=== PATIENT | male | born 1965 | race Caucasian/White ===

== ENCOUNTER 2017-01-21 05:52 | Day surgery (SDC) | payer OTHER ==
[2017-01-21] MEDS ORDERED: DIPRIVAN 200 MG/20 ML IV ONE (05:53)
[2017-01-21] MEDS ORDERED: Versed 2 MG/2 ML Injection IV ONE (05:53)
[2017-01-21] MEDS ORDERED: Lactated Ringers 1,000 ML IV SCH (06:30)
--- NOTE | 2017-01-21 08:58 | OP ---
SURGERY DATE/TIME: 01/21/2017 0714 PREOPERATIVE DIAGNOSIS: History of colon polyps. POSTOPERATIVE DIAGNOSIS: Large recurrent sigmoid colon polyp and a smaller distal sigmoid colon polyp. PROCEDURE: Colonoscopy. SURGEON: Jese Barahona M.D. ANESTHESIA: MAC by Yeison Gregg CRNA. ESTIMATED BLOOD LOSS: Minimal. SPECIMENS: There is a hot snare polypectomy of large sigmoid colon polyp and hot forceps polypectomy of smaller distal sigmoid colon polyp. HISTORY: Elias is a 51 year-old man who I initially performed colonoscopy on 01/14/2016. He had a colonoscopy and had a large pedunculated sigmoid colon polyp at 30 cm which was removed with a hot snare and was found to have a benign pedunculated tubular adenoma with no high grade dysplastic features present. He is here for follow up surveillance today. Risks, benefits and alternatives for colonoscopy were discussed and informed, written consent was obtained prior to the procedure. DESCRIPTION OF PROCEDURE: After informed written consent was obtained, the patient was taken to the endoscopy suite. He underwent monitored anesthesia and digital rectal exam showed normal sphincter tone and no internal lesions. The scope was inserted into the rectum and sequentially the entire colonic mucosa was traversed. The level of cecum was reached and verified with direct visualization of ileocecal valve. Large pedunculated sigmoid colon polyp was observed again presumably in the same location as last year. It was removed with a hot snare. The first attempt snare was used and removed majority of the lesion and it was retrieved and removed. Upon inspection there was still a fair amount of polyp present at the base so another snare pass was used to grasp the base with good hemostasis and removal of what appeared to be the entire lesion. Due to the recurrence the area was tattooed both proximally and distally with ink to be able to more easily identify the area on follow up that lesion appeared to be adequately removed and there was no bleeding from the site. Upon withdrawal a small sessile polyp was in the distal sigmoid colon and it was removed with hot forceps and sent for pathology in a separate container. No other lesions were encountered. Prior to withdrawal retroflexion was performed and was within normal limits. I discussed the findings with the patient's . He does have a follow up with Dr. Sandoval next week due to recurrent diverticulitis so I will forward all pathology results as I feel he will need general surgery follow up due to recurrence in a short period of time and large nature of the large recurrent polyp.
[2017-01-21 09:36] VITALS: O2SAT 98
[2017-01-21 09:38] VITALS: BP 126/75; PULSE 63
== END 2017-01-21 09:43 | disposition home or self-care (01) ==
LOC: SDC 05:52
PROVIDERS: ATTEND Family Medicine
PROC: 0DBN8ZX Excision of Sigmoid Colon, Via Natural or Artificial Opening Endoscopic, Diagnostic (ICD-10-PCS; principal; 2017-01-21)
PROC: 0DBN8ZX Excision of Sigmoid Colon, Via Natural or Artificial Opening Endoscopic, Diagnostic (ICD-10-PCS; 2017-01-21)
DX: K63.5 Polyp of colon (principal); Z86.010 Personal history of colon polyps
CPT/HCPCS: 00810; 88305; J2250; J2704

== ENCOUNTER 2017-01-21 22:07 | Emergency (ER) | payer OTHER ==
[2017-01-21 22:19] VITALS: BP 116/71; O2SAT 97
[2017-01-21] MEDS ORDERED: Phenergan 25 MG INJ IV ONE (22:27)
[2017-01-21] MEDS ORDERED: Hydromorphone 1 mg/ml Ampule IV ONE (22:27)
[2017-01-21] MEDS ORDERED: Sodium Chloride 0.9% 1000 ML 1,000 ML IV SCH (22:30)
[2017-01-21] MEDS ORDERED: Phenergan 25 MG INJ ONE (22:33)
[2017-01-21] MEDS ORDERED: Sodium Chloride 0.9% 1000 ML 1,000 ML ONE (22:34)
[2017-01-21] MEDS ORDERED: Hydromorphone 1 mg/ml Ampule ONE (22:34)
[2017-01-21] MEDS ORDERED: Zosyn 3.375GM/100 Ml D5W 3.375 GM/100 ML IVPB IV STA (22:48)
--- NOTE | 2017-01-21 22:48 | ERPHSYRPT ---
- History of Present Illness Time Seen by Provider: 01/21/17 22:20 Historian: patient Exam Limitations: no limitations Patient Subjective Stated Complaint: fever s/p colonscopy today and c/o congestion runny nose prior to procedure and intermittent left side abd pain Triage Nursing Assessment: intermittent abd pain to left side, no nausea or vomiting, states passing gas and feels some better, tmax 101 at home Physician History: YESTERDAY PT STARTED WITH SINUS DRAINAGE AND A HEADACHE. ABOUT 14.5 HOURS AGO PT HAD A COLONOSCOPY WHERE A LARGE POLYP WAS REMOVED. TONIGHT PT STARTED WITH FEVER UP TO 101.6 DEGREES, FEELING COLD AND DIAPHORESIS. PT DENIES VOMITING, CHEST PAIN, SHORTNESS OF AIR. Allergies/Adverse Reactions: No Known Drug Allergies Allergy (Verified 01/21/17 06:19) Hx Influenza Vaccination/Date Given: No Immunizations Up to Date: Yes - Review of Systems Constitutional: Fever, Other (FEELING COLD TONIGHT) Ears, Nose, & Throat: Sinus Drainage Abdominal/Gastrointestinal: Abdominal Pain Neurological: Headache All Other Systems: Reviewed and Negative - Past Medical History Pertinent Past Medical History: Yes Neurological History: No Pertinent History ENT History: No Pertinent History Cardiac History: No Pertinent History Respiratory History: No Pertinent History Endocrine Medical History: No Pertinent History Musculoskeletal History: No Pertinent History GI Medical History: Diverticulitis, Other History: No Pertinent History Psycho-Social History: No Pertinent History Male Reproductive Disorders: No Pertinent History Other Medical History: hx of diverticulosis, bloody stool have cleared up since antibiotics have cleared. - Past Surgical History Past Surgical History: Yes Neuro Surgical History: No Pertinent History Cardiac: No Pertinent History Respiratory: No Pertinent History Gastrointestinal: Appendectomy Genitourinary: No Pertinent History Musculoskeletal: No Pertinent History Male Surgical History: No Pertinent History Other Surgical History: teeth pulled, lipoma removed from R side - Social History Smoking Status: Current some day smoker Exposure to second hand smoke: No Drug Use: none - Nursing Vital Signs Nursing Vital Signs: Initial Vital Signs Temperature 98.6 F 01/21/17 22:14 Pulse Rate 86 01/21/17 22:14 Respiratory Rate 20 01/21/17 22:14 Blood Pressure 116/71 01/21/17 22:14 O2 Sat by Pulse Oximetry 97 01/21/17 22:14 Pain Scale Pain Intensity 7 - Physical Exam General Appearance: alert Eye Exam: PERRL/EOMI Ears, Nose, Throat Exam: moist mucous membranes, pharyngeal erythema (MINIMAL PHARYNGEAL ERYTHEMA WITHOUT EDEMA) Neck Exam: normal inspection Respiratory Exam: lungs clear Cardiovascular Exam: normal heart sounds Gastrointestinal/Abdomen Exam: soft, tenderness (MILD LLQ ABDOMINAL TENDERNESS) , other (B.S. MODERATELY HYPERACTIVE AND NORMOTONIC), No guarding Back Exam: normal range of motion Extremity Exam: normal inspection, No pedal edema Neurologic Exam: alert, cooperative Skin Exam: warm, dry SpO2 Interpretation: normal SpO2: 97 Oxygen Delivery: Room Air - Course Nursing assessment & vital signs reviewed: Yes Ordered Tests: Active Orders 24 hr Category Date Time Status Clean Catch Urine Specimen STAT Care 01/21/17 22:27 Active IV Insertion STAT Care 01/21/17 22:27 Active ABDOMEN AND PELVIS W/0 CONTRAS [CT] Stat Exams 01/21/17 22:28 Taken AMYLASE Stat Lab 01/21/17 23:02 Completed BLOOD CULTURE Stat Lab 01/21/17 23:23 Received CBC W DIFF Stat Lab 01/21/17 23:02 Completed CMP Stat Lab 01/21/17 23:02 Completed CULTURE, THROAT Stat Lab 01/21/17 23:23 Received CULTURE,URINE Stat Lab 01/22/17 00:16 Received Erythrocyte Sedimentation Rate Stat Lab 01/21/17 23:02 Completed LIPASE Stat Lab 01/21/17 23:02 Completed Lactic Acid Stat Lab 01/21/17 23:03 Completed MAG [MAGNESIUM] Stat Lab 01/21/17 23:23 Completed Edmonson Screen Stat Lab 01/21/17 23:02 Completed STREP SCREEN-BETA A Stat Lab 01/21/17 23:23 Completed UA W/ MICROSCOPIC Stat Lab 01/21/17 23:23 Completed Medication Summary Generic Name Dose Route Start Last Admin Trade Name Freq PRN Reason Stop Dose Admin Sodium Chloride 1,000 mls @ 200 mls/hr 01/21/17 22:30 01/21/17 22:39 Sodium Chloride 0.9% 1000 Ml IV 02/20/17 22:29 200 mls/hr .Q5H BJORN Administration Magnesium Sulfate/Dextrose 100 mls @ 200 mls/hr 01/21/17 23:58 01/22/17 00:05 Magnesium 1 Gm / 100 Ml D5w IV 01/22/17 00:27 200 mls/hr STAT ONE Administration Metronidazole 500 mg in 100 mls @ 200 mls/hr 01/22/17 00:18 Flagyl 500 Mg Ivpb IV 01/22/17 00:47 STAT STA Discontinued Medications Generic Name Dose Route Start Last Admin Trade Name Regan PRN Reason Stop Dose Admin Hydromorphone HCl 1 mg 01/21/17 22:27 01/21/17 22:39 Hydromorphone 1 Mg/Ml Ampule IV 01/21/17 22:28 1 mg STAT ONE Administration Hydromorphone HCl Confirm 01/21/17 22:34 Hydromorphone 1 Mg/Ml Ampule Administered 01/21/17 22:35 Dose 1 mg .ROUTE .STK-MED ONE Piperacillin Sod/Tazobactam Sod 3.375 gm in 100 mls @ 200 mls/hr 01/21/17 22: 48 01/21/17 23:12 Zosyn 3.375gm/100 Ml D5w IV 01/21/17 23:17 200 mls/hr STAT STA Administration Piperacillin Sod/Tazobactam Sod Confirm 01/21/17 22:59 Zosyn 3.375gm/100 Ml D5w Administered 01/21/17 23:00 Dose 3.375 gm in 100 mls @ ud IV .STK-MED ONE Magnesium Sulfate/Dextrose Confirm 01/22/17 00:02 Magnesium 1 Gm / 100 Ml D5w Administered 01/22/17 00:03 Dose 100 mls @ ud IV .STK-MED ONE Promethazine HCl 12.5 mg 01/21/17 22:27 01/21/17 22:38 Phenergan 25 Mg Inj IV 01/21/17 22:28 12.5 mg STAT ONE Administration Promethazine HCl Confirm 01/21/17 22:33 Phenergan 25 Mg Inj Administered 01/21/17 22:34 Dose 25 mg .ROUTE .STK-MED ONE Lab/Rad Data: Laboratory Result Diagrams 01/21/17 23:02 01/21/17 23:02 Laboratory Results 01/21/17 01/21/17 01/21/17 Range/Units 23:23 23:23 23:23 WBC (4.0-10.5) K/mm3 RBC (4.1-5.6) M/mm3 Hgb (12.5-18.0) gm/dl Hct (42-50) % MCV (78-100) fl MCH (26-32) pg MCHC (32-36) g/dl RDW (11.5-14.0) % Plt Count (150-450) K/mm3 MPV (6-9.5) fl Gran % (36.0-66.0) % Lymphocytes % (24.0-44.0) % Monocytes % (0.0-12.0) % Eosinophils % (0.00-5.0) % Basophils % (0.0-0.4) % Basophils # (0-0.4) ESR (0-15) mm/hr Sodium (136-145) mEq/L Potassium (3.5-5.1) mEq/L Chloride (98-107) mEq/L Carbon Dioxide (21-32) mEq/L Anion Gap (5-15) MEQ/L BUN (9-20) mg/dL Creatinine (0.55-1.30) mg/dl Estimated GFR ML/MIN Glucose (70-110) MG/DL Lactic Acid (0.4-2.0) Calcium (8.5-10.1) mg/dL Magnesium 1.7 L (1.8-2.4) mg/dL Total Bilirubin (0.2-1.0) mg/dL AST (15-37) U/L ALT (12-78) U/L Alkaline Phosphatase (46-116) U/L Serum Total Protein (6.4-8.2) gm/dL Albumin (3.4-5.0) g/dL Amylase (25-115) U/L Lipase (73-393) U/L Ur Collection Type VOID Urine Color YELLOW (YELLOW) Urine Appearance CLEAR (CLEAR) Urine pH 6.0 (5-6) Ur Specific Woodworth 1.015 (1.005-1.025) Urine Protein NEGATIVE (Negative) Urine Ketones SMALL (NEGATIVE) Urine Blood TRACE NON-HEM (0-5) Ender/ul Urine Nitrite NEGATIVE (NEGATIVE) Urine Bilirubin NEGATIVE (NEGATIVE) Urine Urobilinogen NORMAL (0-1) mg/dL Ur Leukocyte Esterase NEGATIVE (NEGATIVE) Urine Microscopic RBC 2-5 (0-2) /HPF Urine Microscopic WBC 2-5 (0-5) /HPF Ur Epithelial Cells FEW (FEW) /HPF Urine Bacteria FEW (NEGATIVE) /HPF Urine Mucus MANY (NEGATIVE) /HPF Urine Sperm PRESENT (NEGATIVE) /HPF Urine Culture Reflexed NO (NO) Urine Glucose NEGATIVE (NEGATIVE) mg/dL Monoscreen (Negative) Streptococcus Screen NEGATIVE (Negative) Specimen Received 01/21/17 2320 01/21/17 01/21/17 01/21/17 Range/Units 23:03 23:02 23:02 WBC (4.0-10.5) K/mm3 RBC (4.1-5.6) M/mm3 Hgb (12.5-18.0) gm/dl Hct (42-50) % MCV (78-100) fl MCH (26-32) pg MCHC (32-36) g/dl RDW (11.5-14.0) % Plt Count (150-450) K/mm3 MPV (6-9.5) fl Gran % (36.0-66.0) % Lymphocytes % (24.0-44.0) % Monocytes % (0.0-12.0) % Eosinophils % (0.00-5.0) % Basophils % (0.0-0.4) % Basophils # (0-0.4) ESR 6 (0-15) mm/hr Sodium (136-145) mEq/L Potassium (3.5-5.1) mEq/L Chloride (98-107) mEq/L Carbon Dioxide (21-32) mEq/L Anion Gap (5-15) MEQ/L BUN (9-20) mg/dL Creatinine (0.55-1.30) mg/dl Estimated GFR ML/MIN Glucose (70-110) MG/DL Lactic Acid 0.7 (0.4-2.0) Calcium (8.5-10.1) mg/dL Magnesium (1.8-2.4) mg/dL Total Bilirubin (0.2-1.0) mg/dL AST (15-37) U/L ALT (12-78) U/L Alkaline Phosphatase (46-116) U/L Serum Total Protein (6.4-8.2) gm/dL Albumin (3.4-5.0) g/dL Amylase (25-115) U/L Lipase (73-393) U/L Ur Collection Type Urine Color (YELLOW) Urine Appearance (CLEAR) Urine pH (5-6) Ur Specific Woodworth (1.005-1.025) Urine Protein (Negative) Urine Ketones (NEGATIVE) Urine Blood (0-5) Ender/ul Urine Nitrite (NEGATIVE) Urine Bilirubin (NEGATIVE) Urine Urobilinogen (0-1) mg/dL Ur Leukocyte Esterase (NEGATIVE) Urine Microscopic RBC (0-2) /HPF Urine Microscopic WBC (0-5) /HPF Ur Epithelial Cells (FEW) /HPF Urine Bacteria (NEGATIVE) /HPF Urine Mucus (NEGATIVE) /HPF Urine Sperm (NEGATIVE) /HPF Urine Culture Reflexed (NO) Urine Glucose (NEGATIVE) mg/dL Monoscreen NEGATIVE (Negative) Streptococcus Screen (Negative) Specimen Received 01/21/17 01/21/17 Range/Units 23:02 23:02 WBC 10.7 H (4.0-10.5) K/mm3 RBC 4.45 (4.1-5.6) M/mm3 Hgb 13.6 (12.5-18.0) gm/dl Hct 41.9 L (42-50) % MCV 94.2 (78-100) fl MCH 30.6 (26-32) pg MCHC 32.5 (32-36) g/dl RDW 12.4 (11.5-14.0) % Plt Count 258 (150-450) K/mm3 MPV 10.0 H (6-9.5) fl Gran % 82.0 H (36.0-66.0) % Lymphocytes % 7.5 L (24.0-44.0) % Monocytes % 9.7 (0.0-12.0) % Eosinophils % 0.5 (0.00-5.0) % Basophils % 0.3 (0.0-0.4) % Basophils # 0.03 (0-0.4) ESR (0-15) mm/hr Sodium 135 L (136-145) mEq/L Potassium 3.7 (3.5-5.1) mEq/L Chloride 100 (98-107) mEq/L Carbon Dioxide 24.7 (21-32) mEq/L Anion Gap 14.1 (5-15) MEQ/L BUN 7 L (9-20) mg/dL Creatinine 0.88 (0.55-1.30) mg/dl Estimated GFR > 60 ML/MIN Glucose 95 (70-110) MG/DL Lactic Acid (0.4-2.0) Calcium 9.3 (8.5-10.1) mg/dL Magnesium (1.8-2.4) mg/dL Total Bilirubin 0.50 (0.2-1.0) mg/dL AST 15 (15-37) U/L ALT 28 (12-78) U/L Alkaline Phosphatase 67 (46-116) U/L Serum Total Protein 6.8 (6.4-8.2) gm/dL Albumin 3.9 (3.4-5.0) g/dL Amylase 41 (25-115) U/L Lipase 86 (73-393) U/L Ur Collection Type Urine Color (YELLOW) Urine Appearance (CLEAR) Urine pH (5-6) Ur Specific Woodworth (1.005-1.025) Urine Protein (Negative) Urine Ketones (NEGATIVE) Urine Blood (0-5) Ender/ul Urine Nitrite (NEGATIVE) Urine Bilirubin (NEGATIVE) Urine Urobilinogen (0-1) mg/dL Ur Leukocyte Esterase (NEGATIVE) Urine Microscopic RBC (0-2) /HPF Urine Microscopic WBC (0-5) /HPF Ur Epithelial Cells (FEW) /HPF Urine Bacteria (NEGATIVE) /HPF Urine Mucus (NEGATIVE) /HPF Urine Sperm (NEGATIVE) /HPF Urine Culture Reflexed (NO) Urine Glucose (NEGATIVE) mg/dL Monoscreen (Negative) Streptococcus Screen (Negative) Specimen Received - Progress Discussed with : Jun (0012 - PT MAY GO HOME) - Departure Time of Disposition: 00:29 Departure Disposition: Home Clinical Impression: DIVERTICULITIS, ABDOMINAL PAIN Condition: Stable Critical Care Time: No Referrals: SHANTEL MCKINNEY MD [Primary Care Provider] - Instructions: Diverticulitis Additional Instructions: FOLLOW UP WITH PRIVATE DOCTOR TOMORROW. START CLEAR LIQUIDS TODAY. Prescriptions: Ciprofloxacin [Cipro 500 MG] 500 mg PO BID #20 tablet Metronidazole 500 mg [Flagyl 500 MG] 500 mg PO TID #30 tablet
[2017-01-21] MEDS ORDERED: Zosyn 3.375GM/100 Ml D5W 3.375 GM/100 ML IVPB IV ONE (22:59)
[2017-01-21 23:09] LABS: BASOPHIL % 0.3 % (0.0-0.4); Eosinophil % 0.5 % (0.00-5.0); Lymphocytes % 7.5 % (24.0-44.0); Mean Cell Volume 94.2 fl (78-100); Mean Corpuscular Hemoglobin 30.6 pg (26-32); Monocytes % 9.7 % (0.0-12.0); Platelet Count 258 K/mm3 (150-450); Red Blood Count 4.45 M/mm3 (4.1-5.6); Red Cell Distribution Width 12.4 % (11.5-14.0); White Blood Count 10.7 K/mm3 (4.0-10.5)
[2017-01-21 23:38] LABS: ALBUMIN 3.9 g/dL (3.4-5.0); ALKALINE PHOSPHATASE 67 U/L (46-116); ANION GAP 14.1 MEQ/L (5-15); BLOOD UREA NITROGEN 7 mg/dL (9-20); CHLORIDE 100 mEq/L (98-107); Carbon Dioxide 24.7 mEq/L (21-32); Glucose 95 MG/DL (70-110); LIPASE 86 U/L (73-393); Potassium 3.7 mEq/L (3.5-5.1); SGOT/AST 15 U/L (15-37); SGPT/ALT 28 U/L (12-78); SODIUM 135 mEq/L (136-145); Total Protein 6.8 gm/dL (6.4-8.2)
[2017-01-21] MEDS ORDERED: Magnesium 1 Gm / 100 Ml D5W*** 100 ML IV ONE (23:58)
[2017-01-22] MEDS ORDERED: Magnesium 1 Gm / 100 Ml D5W*** 100 ML IV ONE (00:02)
[2017-01-22 00:03] LABS: Bilirubin NEGATIVE (NEGATIVE); Blood TRACE NON-HEM Ery/ul (0-5); COMPLETE URINE MICROSCOPIC? YES; Collection Type VOID; Glucose NEGATIVE (NEGATIVE); Leukocyte Esterase NEGATIVE (NEGATIVE)
[2017-01-22 00:04] LABS: ADD URINE CULTURE? NO (NO); Bacteria FEW /HPF (NEGATIVE); Epithelial Cells FEW /HPF (FEW); Mucus MANY /HPF (NEGATIVE)
[2017-01-22] MEDS ORDERED: FLAGYL 500 MG IVPB 500 MG/100 ML BAG IV STA (00:18)
[2017-01-22] MEDS ORDERED: Cipro 500 MG ONE (00:22)
[2017-01-22] MEDS ORDERED: FLAGYL 500 MG IVPB 500 MG/100 ML BAG IV ONE (00:36)
[2017-01-22] MEDS ORDERED: TYLENOL 325 MG PO ONE (00:46)
[2017-01-22] MEDS ORDERED: TYLENOL 325 MG ONE (00:47)
[2017-01-22 01:57] VITALS: PULSE 76
--- NOTE | 2017-01-22 07:52 | XRAY ---
Indication: Left lower quadrant pain following colonoscopy. Multiple contiguous axial images obtained through the abdomen and pelvis without contrast as ordered. Comparison: August 24, 2015. Lung bases are clear. Heart is not enlarged. Noncontrasted stomach and bowel loops appear nonobstructed. Stable small fundal gastric diverticulum. Again scattered descending and sigmoid diverticulosis. At the junction of the descending and sigmoid colon, there is minimal pericolonic stranding favoring mild diverticulitis. No free fluid/air. Remaining liver, gallbladder, pancreas, spleen, adrenal glands, kidneys, ureters, and bladder appear unremarkable for noncontrast exam. There remains minimal aortoiliac calcifications without AAA. Osseous structures intact. Impression: 1. Again colonic diverticulosis with now mild diverticulitis at the junction of the descending and sigmoid colon. 2. Stable small gastric diverticulum. Comment: Preliminary interpretation was made by [facility]. No discrepancy. CTDI 12.13
== END 2017-01-22 02:09 | disposition home or self-care (01) ==
LOC: ED 22:07
DX: K57.92 Diverticulitis of intestine, part unspecified, without perforation or abscess without bleeding (principal); R10.9 Unspecified abdominal pain
CPT/HCPCS: 36000; 36415; 74176; 80053; 81000; 81002; 82150; 83605; 83690; 83735; 85025; 85652; 86308; 87040; 87070; 87086; 87430; 87631; 96360; 96365; 99285; J1170; J2543; J2550; J3475; A9270-GY

== ENCOUNTER 2017-02-12 06:50 | Inpatient (IN) | payer OTHER ==
--- NOTE | 2017-02-09 10:19 | HP ---
DATE OF SURGERY: 02/12/2017 ADMISSION DIAGNOSIS: Persistent diverticulitis and pain left lower quadrant. ANTICIPATED PROCEDURE: Partial left colectomy. HISTORY OF PRESENT ILLNESS: The patient has persistent diverticulitis. He had barium enema examination and this confirmed the area. He also had colonoscopic examination. The area is just unrelenting, persistent in nature left side. He did have large polyp removed which was satisfactory. Options were discussed with him and he wished to proceed with intervention. He presents for a partial left colectomy. PAST MEDICAL HISTORY: ALLERGIES: NONE. MEDICATIONS: Flagyl, Cipro. PAST SURGICAL HISTORY: Appendectomy. SOCIAL HISTORY: Negative. FAMILY HISTORY: Negative. REVIEW OF SYSTEMS: Negative. PHYSICAL EXAMINATION: VITAL SIGNS: Normal. CHEST: Clear. COR: Regular. IMPRESSION: Abdomen pain always down the left lower side. PLAN: Left partial colectomy.
[2017-02-12] MEDS ORDERED: ENTEREG 12 MG PO ONE (07:20)
[2017-02-12] MEDS ORDERED: Lactated Ringers 1,000 ML IV SCH (07:30)
[2017-02-12] MEDS ORDERED: MEFOXIN 2 GM PREMIX** 2 GM/50 ML ML IV SCH (08:00)
[2017-02-12] MEDS ORDERED: Lactated Ringers 1,000 ML IV ONE ×2 (08:39→11:25)
[2017-02-12] MEDS ORDERED: ENTEREG 12 MG PO SCH (10:00)
[2017-02-12] MEDS ORDERED: DILAUDID 2 MG INJECTION ONE (11:38)
[2017-02-12] MEDS ORDERED: SUBLIMAZE 100 MCG/2 ML ONE (11:48)
[2017-02-12] MEDS ORDERED: Zofran 4 MG/2 ML VIAL IV ONE ×2 (11:50→14:25)
[2017-02-12] MEDS ORDERED: FEVERALL 650 MG RC PRN (12:31)
[2017-02-12] MEDS ORDERED: Zofran 4 MG/2 ML VIAL IVIM PRN (12:32)
[2017-02-12] MEDS: Morphine PCA 1 MG/ML 30 ML IV PRN ×3 (13:08→23:45)
[2017-02-12] MEDS ORDERED: DIPRIVAN 200 MG/20 ML IV ONE (14:25)
[2017-02-12] MEDS ORDERED: DILAUDID 2 MG INJECTION IV ONE (14:25)
[2017-02-12] MEDS ORDERED: BRIDION 200MG/2ML IV ONE (14:25)
[2017-02-12] MEDS ORDERED: Decadron 4 MG INJ IV ONE (14:25)
[2017-02-12] MEDS ORDERED: SUBLIMAZE 100 MCG/2 ML IV ONE (14:25)
[2017-02-12] MEDS ORDERED: Zemuron 100 MG/10 ML IJ ONE (14:25)
[2017-02-12] MEDS ORDERED: Quelicin Fliptop 200 MG/10 ML IJ ONE (14:25)
[2017-02-12] MEDS ORDERED: TORAdol 30 mg Injection IJ ONE (14:25)
[2017-02-12] MEDS: D5W/0.45NS W/ 20mEq KCl 1000 ML 1,000 ML IV SCH (14:58)
[2017-02-12] MEDS ORDERED: TYLENOL 325 MG PO PRN (15:02)
[2017-02-12] MEDS: MEFOXIN 1 Gm/ D5W 50 Ml** 1 G/50 ML ML IV SCH ×2 (17:28→23:31)
[2017-02-12] MEDS: ENTEREG 12 MG PO SCH (22:04)
[2017-02-13] MEDS: D5W/0.45NS W/ 20mEq KCl 1000 ML 1,000 ML IV SCH ×3 (02:02→21:46)
[2017-02-13] MEDS: MEFOXIN 1 Gm/ D5W 50 Ml** 1 G/50 ML ML IV SCH (05:18)
[2017-02-13 05:36] LABS: Mean Corpuscular Hemoglobin 30.4 pg (26-32); Mean Platelet Volume 9.8 fl (6-9.5); Platelet Count 288 K/mm3 (150-450); Red Blood Count 4.01 M/mm3 (4.1-5.6); White Blood Count 14.1 K/mm3 (4.0-10.5)
[2017-02-13] MEDS: Morphine PCA 1 MG/ML 30 ML IV PRN ×5 (05:45→22:11)
[2017-02-13 05:53] LABS: BLOOD UREA NITROGEN 8 mg/dL (9-20); CHLORIDE 103 mEq/L (98-107); Carbon Dioxide 31.3 mEq/L (21-32); Glucose 139 MG/DL (70-110); Potassium 4.8 mEq/L (3.5-5.1); SODIUM 134 mEq/L (136-145)
[2017-02-13 07:08] LABS: Platelet Estimate NORMAL (NORMAL); Total Cells Counted 100
--- NOTE | 2017-02-13 07:43 | OP ---
SURGERY DATE/TIME: 02/12/2017 0956 PREOPERATIVE DIAGNOSIS: The patient had a large colon polyp. It had been marked with dye. He had persistent left lateral abdominal pain. He had diverticulitis recurrent. He had endoscopic examination and barium enema examination. His pain was persistent. He elected to have this out. It was clearly down the left side a little higher than lower. It was discussed with him preoperatively. It was discussed with him today in the holding area. POSTOPERATIVE DIAGNOSIS: PROCEDURE: Open laparotomy with left partial colectomy with reanastomosis, modification splenic flexure, umbilical hernia. SURGEON: Jono Sandoval M.D. ANESTHESIA: General. COMPLICATIONS: None. CONDITION: Stable. DESCRIPTION OF PROCEDURE: Taken to surgery. General anesthetic. Routine prep and drape. There was an umbilical incision which was taken out. The colon pathology was right at the junction of the descending and sigmoid. It was necessary to mobilize the splenic flexure. The splenic flexure was mobilized, this allowed to take most of the descending colon and most of the sigmoid. Preparation for end-to-side anastomosis in upper splenic flexure, descending colon side to the distal sigmoid posterior layer #3-0 PDS was placed and secured. Anterior layer was placed and secured. Anastomosis set about a little over 1 cm from the stapled off SIDDHARTHA edge. As noted it was end-to-side with the upper end and the lower side. Mesenteric defect approximated with 3-0 PDS. The field was irrigated. Lap sponge, sponge and needle counts were correct. Anterior abdominal wall closed with looped 0 PDS including the umbilical hernia. Subcutaneous tissues irrigated. Skin closed with jasvir. Sterile dressing applied. The patient tolerated the procedure satisfactorily.
[2017-02-13] MEDS: ENOXAPARIN SODIUM SQ SCH (08:50)
[2017-02-13] MEDS: ENTEREG 12 MG PO SCH ×2 (08:53→21:51)
[2017-02-13] MEDS: PROTONIX 40 MG IV IV SCH (22:01)
[2017-02-14] MEDS: Morphine PCA 1 MG/ML 30 ML IV PRN ×2 (04:18→13:39)
[2017-02-14] MEDS: ENOXAPARIN SODIUM SQ SCH (09:44)
[2017-02-14] MEDS: D5W/0.45NS W/ 20mEq KCl 1000 ML 1,000 ML IV SCH ×2 (09:44→16:45)
[2017-02-14] MEDS: ENTEREG 12 MG PO SCH ×2 (09:44→21:24)
--- NOTE | 2017-02-14 10:42 | PCM.NOTE ---
Date and Time: 02/14/17 1042 Subjective Assessment: he is doing well has been ambulating pain controlled with medication. no hunger. no nausea. no flatulence or bm. Objective Exam General Appearance: no apparent distress, alert Neurologic Exam: alert, oriented x 3, cooperative, normal mood/affect, nml cerebellar function, sensation nml, No motor deficits Skin Exam: normal color, warm, dry Eye Exam: PERRL, EOMI, eyes nml inspection Ears, Nose, Throat Exam: normal ENT inspection, pharynx normal, moist mucous membranes Neck Exam: normal inspection, non-tender, supple, full range of motion Respiratory Exam: normal breath sounds, lungs clear, No respiratory distress Cardiovascular Exam: regular rate/rhythm, normal heart sounds Gastrointestinal/Abdomen Exam: soft, tenderness (mild incisions with clean dry dressings), No mass Extremity Exam: normal inspection, normal range of motion Back Exam: normal inspection, normal range of motion, No CVA tenderness, No vertebral tenderness Male Genitalia Exam: deferred Rectal Exam: deferred OBJECTIVE DATA Vital Signs: Vital Signs - 24 hr Temp Pulse Resp BP Pulse Ox 02/14/17 08:00 18 02/14/17 07:50 98 02/14/17 07:05 76 18 93 L 02/14/17 06:52 98.5 F 75 18 120/74 98 02/14/17 04:18 92 L 02/14/17 04:12 98.2 F 79 17 134/76 92 L 02/14/17 00:06 98.4 F 78 16 107/66 96 02/13/17 22:11 95 02/13/17 19:59 94 L 02/13/17 19:49 99.0 F 79 20 114/63 95 02/13/17 19:00 97 02/13/17 17:50 95 02/13/17 16:12 75 18 92 L 02/13/17 16:00 20 91 L 02/13/17 15:59 91 L 02/13/17 15:41 97.5 F 77 20 108/70 91 L 02/13/17 14:27 91 L 02/13/17 12:00 20 96 02/13/17 11:04 97.7 F 86 20 126/71 96 Oxygen-Last 24 hours O2 Percentage 2 Liters = 28% O2 Percentage 2 Liters = 28% Pain Assessment - Last Documented Pain Intensity [Upper] 1 Pain Intensity 5 Pain Scale Used 0-10 Pain Scale Intake and Output: Intake & Output 02/11/17 02/12/17 02/13/17 02/14/17 11:59 11:59 11:59 11:59 Intake Total 2338 2343 Output Total 1800 1400 Balance 538 943 Weight 70.76 kg 74.389 kg 74.389 kg Assessment/Plan (1) S/P partial colectomy Current Visit: Yes Status: Acute Assessment & Plan: post op day 2 doing well diet per surgery check am labs ambulate on lovenox for ppx Code(s): Z90.49 - ACQUIRED ABSENCE OF OTHER SPECIFIED PARTS OF DIGESTIVE TRACT (2) Postoperative anemia Current Visit: Yes Status: Acute Assessment & Plan: mild asymptomatic Code(s): D64.9 - ANEMIA, UNSPECIFIED
[2017-02-14] MEDS: PROTONIX 40 MG IV IV SCH (21:29)
[2017-02-15] MEDS: Morphine PCA 1 MG/ML 30 ML IV PRN (01:20)
[2017-02-15] MEDS: D5W/0.45NS W/ 20mEq KCl 1000 ML 1,000 ML IV SCH ×2 (01:48→11:03)
[2017-02-15 05:56] LABS: Mean Cell Volume 94.3 fl (78-100); Mean Corpuscular Hemoglobin 30.5 pg (26-32); Mean Platelet Volume 10.1 fl (6-9.5); Platelet Count 287 K/mm3 (150-450); Red Cell Distribution Width 11.8 % (11.5-14.0); White Blood Count 10.1 K/mm3 (4.0-10.5)
[2017-02-15 05:58] LABS: ALBUMIN 2.9 g/dL (3.4-5.0); ALKALINE PHOSPHATASE 62 U/L (46-116); ANION GAP 8.4 MEQ/L (5-15); BLOOD UREA NITROGEN 5 mg/dL (9-20); CHLORIDE 102 mEq/L (98-107); Carbon Dioxide 29.6 mEq/L (21-32); Glucose 119 MG/DL (70-110); Potassium 3.8 mEq/L (3.5-5.1); SGOT/AST 18 U/L (15-37); SGPT/ALT 17 U/L (12-78); SODIUM 136 mEq/L (136-145); Total Protein 6.5 gm/dL (6.4-8.2)
[2017-02-15] MEDS: ENTEREG 12 MG PO SCH ×2 (08:15→20:50)
[2017-02-15] MEDS: NORCO 5/325 MG PO PRN ×4 (08:15→20:48)
[2017-02-15] MEDS: ENOXAPARIN SODIUM SQ SCH (08:15)
[2017-02-15] MEDS ORDERED: BACIGUENT 30 GM ONE (08:20)
--- NOTE | 2017-02-15 09:51 | PCM.NOTE ---
Date and Time: 02/15/17943 Subjective Assessment: ambulating in the halls. no flatulance no bm no nausea some soreness on the nose with ulceration in the left nare at site of old ng that was pulled a few days ago. Objective Exam General Appearance: no apparent distress, alert Neurologic Exam: alert, oriented x 3, cooperative, normal mood/affect, nml cerebellar function, sensation nml, No motor deficits Skin Exam: normal color, warm, dry Eye Exam: PERRL, EOMI, eyes nml inspection Ears, Nose, Throat Exam: pharynx normal, moist mucous membranes, other (left nare with ulceration) Neck Exam: normal inspection, non-tender, supple, full range of motion Respiratory Exam: normal breath sounds, lungs clear, No respiratory distress Cardiovascular Exam: regular rate/rhythm, normal heart sounds Gastrointestinal/Abdomen Exam: soft, normal bowel sounds, tenderness, No mass Extremity Exam: normal inspection, normal range of motion Back Exam: normal inspection, normal range of motion, No CVA tenderness, No vertebral tenderness Male Genitalia Exam: deferred Rectal Exam: deferred OBJECTIVE DATA Vital Signs: Vital Signs - 24 hr Temp Pulse Resp BP Pulse Ox 02/15/17 05:20 95 02/15/17 03:46 99.5 F 74 20 139/91 95 02/15/17 01:20 95 02/14/17 23:45 98.5 F 81 18 136/94 95 02/14/17 20:00 98.9 F 80 18 127/82 94 L 02/14/17 19:43 96 02/14/17 19:42 96 02/14/17 18:20 93 L 02/14/17 17:39 93 L 02/14/17 16:00 98.5 F 87 20 138/66 93 L 02/14/17 14:15 80 18 95 02/14/17 13:39 95 02/14/17 12:00 18 02/14/17 11:29 98.3 F 78 18 142/82 95 Pain Assessment - Last Documented Pain Intensity [Upper] 1 Pain Intensity 3 Pain Scale Used 0-10 Pain Scale Intake and Output: Intake & Output 02/12/17 02/13/17 02/14/17 02/15/17 11:59 11:59 11:59 11:59 Intake Total 2338 2343 2701 Output Total 1800 1400 805 Balance 867 978 9994 Weight 70.76 kg 74.389 kg 74.389 kg Lab Results: Lab Results-Last 24 Hours 02/15/17 02/15/17 Range/Units 05:15 05:15 WBC 10.1 (4.0-10.5) K/mm3 RBC 4.00 L (4.1-5.6) M/mm3 Hgb 12.2 L (12.5-18.0) gm/dl Hct 37.7 L (42-50) % MCV 94.3 (78-100) fl MCH 30.5 (26-32) pg MCHC 32.4 (32-36) g/dl RDW 11.8 (11.5-14.0) % Plt Count 287 (150-450) K/mm3 MPV 10.1 H (6-9.5) fl Sodium 136 (136-145) mEq/L Potassium 3.8 (3.5-5.1) mEq/L Chloride 102 (98-107) mEq/L Carbon Dioxide 29.6 (21-32) mEq/L Anion Gap 8.4 (5-15) MEQ/L BUN 5 L (9-20) mg/dL Creatinine 0.67 (0.55-1.30) mg/dl Estimated GFR > 60 ML/MIN Glucose 119 H (70-110) MG/DL Calcium 8.7 (8.5-10.1) mg/dL Total Bilirubin 0.60 (0.2-1.0) mg/dL AST 18 (15-37) U/L ALT 17 (12-78) U/L Alkaline Phosphatase 62 (46-116) U/L Serum Total Protein 6.5 (6.4-8.2) gm/dL Albumin 2.9 L (3.4-5.0) g/dL Assessment/Plan (1) S/P partial colectomy Current Visit: Yes Status: Acute Assessment & Plan: post op day 3 continue diet per surgery continue ambulation and Lovenox for dvt ppx Code(s): Z90.49 - ACQUIRED ABSENCE OF OTHER SPECIFIED PARTS OF DIGESTIVE TRACT (2) Postoperative anemia Current Visit: Yes Status: Acute Code(s): D64.9 - ANEMIA, UNSPECIFIED
[2017-02-15] MEDS: BACIGUENT 30 GM TOP SCH ×2 (10:05→20:49)
[2017-02-15] MEDS: PROTONIX 40 MG IV IV SCH (21:05)
[2017-02-16] MEDS: NORCO 5/325 MG PO PRN ×6 (00:50→21:21)
[2017-02-16] MEDS: D5W/0.45NS W/ 20mEq KCl 1000 ML 1,000 ML IV SCH ×2 (01:36→12:35)
[2017-02-16] MEDS: Morphine PCA 1 MG/ML 30 ML IV PRN ×2 (03:53→22:25)
--- NOTE | 2017-02-16 08:30 | PCM.NOTE ---
Date and Time: 02/16/17826 Subjective Assessment: pt reports he passed flatus overnight and had a small bowel movement this morning. pain is controlled, he is ambulating. tolerated fluids yesterday with no nausea or vomiting. Objective Exam General Appearance: no apparent distress, alert Skin Exam: normal color, warm, dry Respiratory Exam: normal breath sounds, lungs clear, No respiratory distress Cardiovascular Exam: regular rate/rhythm, normal heart sounds Gastrointestinal/Abdomen Exam: soft, normal bowel sounds, other (dressing clean , dry and intact), No tenderness, No mass Extremity Exam: normal inspection, normal range of motion OBJECTIVE DATA Vital Signs: Vital Signs - 24 hr Temp Pulse Resp BP Pulse Ox 02/16/17 07:51 98.6 F 84 18 136/86 91 L 02/16/17 06:34 93 L 02/16/17 04:00 20 02/16/17 03:53 94 L 02/16/17 03:29 98.0 F 71 20 141/90 93 L 02/16/17 00:00 98.7 F 72 15 156/95 93 L 02/15/17 20:00 20 02/15/17 19:26 98.5 F 82 20 141/94 95 02/15/17 16:00 98.7 F 72 20 145/96 95 02/15/17 12:00 20 02/15/17 11:54 98.4 F 75 16 136/87 95 02/15/17 08:30 20 Pain Assessment - Last Documented Pain Intensity [Upper] 1 Pain Intensity 4 Pain Scale Used 0-10 Pain Scale Intake and Output: Intake & Output 02/13/17 02/14/17 02/15/17 02/16/17 11:59 11:59 11:59 11:59 Intake Total 2338 2343 2941 3073 Output Total 1800 1400 1005 1000 Balance 052 538 1273 2073 Weight 74.389 kg 74.389 kg Multi-Disciplinary Progress Notes: Multi-Disciplinary Progress Notes 02/15/17 15:33 Respiratory Note by Karlene Renteria PT DOING WELL WITH 9INCENTIVE. [id number] PER BREATH WILL CHANGE TO SDC Initialized on 02/15/17 15:33 - END OF NOTE 02/15/17 11:43 Pharmacy Note by Catracho Pichardo PATIENT MEDICATION TEACHING/COUNSELING PERFORMED ON THE FOLLOWING MEDICATIONS: MORPHINE MOBILE APPLICATION TESTER VS HYDROCODONE ... PT CURRENTLY DISCONNECTED FROM MOBILE APPLICATION TESTER. TOOK DOSE OF NORCO 5 EARLIER THIS AM. RATING PAIN AT A 4 A THIS TIME. ALSO DISCUSSED ENTEREG FOLLOWING BOWEL SURGERIES. AND THE USE OF LOVENOX TO PREVENT BLOOD CLOTS DISCUSSED USES AND SIDE EFFECTS OF EACH MEDICATION. Sarah PICHARDO Initialized on 02/15/17 11:43 - END OF NOTE Assessment/Plan (1) S/P partial colectomy Current Visit: Yes Status: Acute Assessment & Plan: doing well at this time, appears to have resolving post-operative ileus with flatus and bowel movement today. will advance diet per surgery, otherwise doing well. Code(s): Z90.49 - ACQUIRED ABSENCE OF OTHER SPECIFIED PARTS OF DIGESTIVE TRACT
[2017-02-16] MEDS: BACIGUENT 30 GM TOP SCH ×2 (09:31→21:21)
[2017-02-16] MEDS: ENTEREG 12 MG PO SCH ×2 (09:32→21:21)
[2017-02-16] MEDS: ENOXAPARIN SODIUM SQ SCH (09:33)
[2017-02-16] MEDS: PROTONIX 40 MG IV IV SCH (21:20)
[2017-02-16] MEDS ORDERED: MORPHINE SULFATE 2 MG INJ IV PRN (22:48)
[2017-02-17] MEDS: NORCO 5/325 MG PO PRN ×6 (00:04→20:30)
[2017-02-17] MEDS: ENOXAPARIN SODIUM SQ SCH (10:02)
[2017-02-17] MEDS: BACIGUENT 30 GM TOP SCH ×2 (10:03→21:07)
[2017-02-17] MEDS: ENTEREG 12 MG PO SCH ×2 (10:03→21:07)
[2017-02-17 11:35] VITALS: O2SAT 94
[2017-02-17] MEDS: Sodium Chloride 0.9% 10 ML FLUSH Syringe IV SCH ×2 (13:48→21:13)
[2017-02-17 16:29] VITALS: BP 145/71; PULSE 74
[2017-02-17] MEDS: PROTONIX 40 MG IV IV SCH (21:07)
--- NOTE | 2017-02-18 08:11 | DS ---
DISCHARGE DIAGNOSIS: THE PATIENT HAS PERSISTENT LEFT LOWER ABDOMINAL FLANK PAIN WITH KNOWN HISTORY OF DIVERTICULOSIS AND DIVERTICULITIS. HE ALSO HAD A LARGE POLYP RESECTED TWICE IN THIS AREA ENDOSCOPICALLY WHICH IS STAINED WITH METHYLENE BLUE. PROCEDURE: Left partial colon resection with reanastomosis by Dr. Jono Sandoval. HOSPITAL COURSE: The patient has two features. He has persistent pain and diverticulitis. He is desiring to have this situation improved. He also had a polyp in this general area removed endoscopically twice. He was taken to surgery. Under general anesthetic left partial colectomy was performed. It removed the segment of diverticulosis and it also removed the methylene blue at the previous polypectomy site. Primary anastomosis performed. Postoperatively he resumed p.o. intake, ambulation and bowel function. He was able to be discharged on his preadmission medications and [place] for pain. He was scheduled to return to the office in two weeks. Ernie were left in place. Incision was dry. Voiding was satisfactory. Bowel movements were satisfactory. Temperature satisfactory. Abdominal binder was then placed. He was given specific instructions on dietary and activity.
== END 2017-02-17 21:20 | disposition home or self-care (01) | DRG 331 ==
LOC: MED SURG 06:50 → EDSTATUS 16:26
PROVIDERS: ADMIT Surgery; ATTEND Surgery
PROC: 0DBE0ZZ Excision of Large Intestine, Open Approach (ICD-10-PCS; principal; 2017-02-12)
DX: K57.92 Diverticulitis of intestine, part unspecified, without perforation or abscess without bleeding (principal); K57.90 Diverticulosis of intestine, part unspecified, without perforation or abscess without bleeding; K63.5 Polyp of colon; R10.32 Left lower quadrant pain; K42.9 Umbilical hernia without obstruction or gangrene; D64.9 Anemia, unspecified; Z90.49 Acquired absence of other specified parts of digestive tract
CPT/HCPCS: 00790; 36415; 80048; 80053; 85025; 85027; 86850; 86900; 86901; 87086; 88307; 94762; J0330; J0694; J1100; J1170; J1650; J1885; J2270; J2405; J2704; J3010; L0625; A9270-GY

== ENCOUNTER 2018-12-09 05:48 | Day surgery (SDC) | payer OTHER ==
--- NOTE | 2018-12-07 15:38 | HP ---
DATE OF SURGERY: 12/09/2018 ANTICIPATED PROCEDURE: Screening colonoscopy. HISTORY OF PRESENT ILLNESS: A patient requiring colonoscopy and presents for such. PAST MEDICAL HISTORY: ALLERGIES: NONE. MEDICATIONS: Trazodone. PAST SURGICAL HISTORY: Colectomy. Shoulder surgery. Appendectomy. SOCIAL HISTORY: Negative. FAMILY HISTORY: Negative. REVIEW OF SYSTEMS: CVS: Negative. PULMONARY: Negative. PHYSICAL EXAMINATION: VITAL SIGNS: Normal. CHEST: Clear. COR: Regular. ABDOMEN: Satisfactory. IMPRESSION: Patient presents for screening colonoscopy.
[2018-12-09] MEDS ORDERED: Lactated Ringers 1,000 ML IV SCH (06:00)
[2018-12-09] MEDS ORDERED: DIPRIVAN 200 MG/20 ML IV ONE (07:36)
[2018-12-09 09:12] VITALS: O2SAT 100
--- NOTE | 2018-12-09 09:23 | OP ---
SURGERY DATE/TIME: 12/09/2018 0820 PREOPERATIVE DIAGNOSIS: Previous sigmoid resection with no recent colonoscopic examination. POSTOPERATIVE DIAGNOSIS: Previous sigmoid resection with no recent colonoscopic examination. PROCEDURE: Colonoscopy complete to cecum. SURGEON: Jono Sandoval M.D. ANESTHESIA: MAC. COMPLICATIONS: None. CONDITION: Stable. FINDINGS: Normal including a normal anastomosis. INDICATION: The patient had resection quite some while ago. He has not had colonoscopy. DESCRIPTION OF PROCEDURE: He was taken to endoscopy. MAC sedation was excellent. Anal digital examination satisfactory. Scope introduced. Anastomosis was normal. The blind end was minimal. The functional end was cannulated. This was cannulated up to the cecum. The cecum, base of the cecum, ileocecal valve and appendiceal orifice normal. Ascending, hepatic, transverse, splenic, descending was normal. Sigmoid surgically absent. Anastomosis normal. Rectum normal. IMPRESSION: Normal examination. PLAN: Follow up in ten years unless symptoms occur.
[2018-12-09 09:27] VITALS: BP 131/72; PULSE 67
== END 2018-12-09 09:33 | disposition home or self-care (01) ==
LOC: SDC 05:48
PROVIDERS: ATTEND Surgery
DX: Z12.11 Encounter for screening for malignant neoplasm of colon (principal); Z09 Encounter for follow-up examination after completed treatment for conditions other than malignant neoplasm
CPT/HCPCS: J2704

== ENCOUNTER 2018-12-22 07:27 | Emergency (ER) | payer OTHER ==
[2018-12-22] MEDS ORDERED: Zofran 4 MG/2 ML VIAL IV ONE ×2 (07:35→09:57)
[2018-12-22] MEDS ORDERED: Pepcid 20 MG VIAL IV ONE ×2 (07:35→07:47)
[2018-12-22] MEDS ORDERED: BENADRYL 50 MG/ML IV ONE (07:35)
[2018-12-22] MEDS ORDERED: Sodium Chloride 0.9% 1000 ML 1,000 ML IV STA (07:35)
[2018-12-22] MEDS ORDERED: Hydromorphone 1 mg/ml Ampule IV ONE (07:35)
[2018-12-22 07:46] LABS: BASOPHIL % 0.2 % (0.0-0.4); Basophil (Absolute #) 0.03 (0-0.4); Eosinophil % 0.2 % (0.00-5.0); Eosinophil (Absolute #) 0.03 (0-0.5); Hematocrit 47.5 % (42-50); Hemoglobin 16.4 gm/dl (12.5-18.0); Lymphocyte (Absolute #) 1.57 (1.0-4.6); Lymphocytes % 9.5 % (24.0-44.0); Mean Cell Volume 93.5 fl (78-100); Mean Corpuscular Hemoglobin 32.3 pg (26-32); Mean Corpuscular Hgb Concent. 34.5 g/dl (32-36); Monocyte (Absolute #) 0.75 (0.0-1.3); Monocytes % 4.5 % (0.0-12.0); Neutrophil % 85.6 % (36.0-66.0); Platelet Count 298 K/mm3 (150-450); Red Blood Count 5.08 M/mm3 (4.1-5.6); Red Cell Distribution Width 12.6 % (11.5-14.0); White Blood Count 16.6 K/mm3 (4.0-10.5)
[2018-12-22] MEDS ORDERED: Zofran 4 MG/2 ML VIAL ONE ×2 (07:47→09:57)
[2018-12-22] MEDS ORDERED: BENADRYL 50 MG/ML ONE (07:47)
[2018-12-22] MEDS ORDERED: Sodium Chloride 0.9% 1000 ML 1,000 ML ONE (07:48)
[2018-12-22] MEDS ORDERED: Hydromorphone 1 mg/ml Ampule ONE (07:48)
[2018-12-22 07:53] LABS: INR 1.03 (0.8-3.0); PROTIME 11.7 SECONDS (8.83-12.87)
[2018-12-22 07:57] LABS: ALBUMIN 4.6 g/dL (3.5-5.0); ALKALINE PHOSPHATASE 81 U/L (38-126); ANION GAP 18.2 MEQ/L (5-15); BLOOD UREA NITROGEN 14 mg/dL (9-20); CHLORIDE 102 mmol/L (98-107); Calcium 9.7 mg/dL (8.4-10.2); Carbon Dioxide 24 mmol/L (22-30); Creatinine 1 0.69 mg/dL (0.66-1.25); Glucose 105 mg/dL (74-106); LIPASE 46 U/L (23-300); Potassium 4.2 mmol/L (3.5-5.1); SGOT/AST 29 U/L (17-59); SGPT/ALT 22 U/L (0-50); SODIUM 140 mmol/L (137-145); Total Protein 7.7 g/dL (6.3-8.2)
--- NOTE | 2018-12-22 08:03 | ERPHSYRPT ---
- History of Present Illness Time Seen by Provider: 12/22/18 07:35 Historian: patient, family Exam Limitations: no limitations Patient Subjective Stated Complaint: pt states that he has been nausea since last , pt states that he had a gallbladder ultrasound yesterday, pt states that he is unable to keep anything down, pt states that his rt abdomen is sore 5/10 pain with flare ups of 10/10 pain, colonostopy on 12/17 Triage Nursing Assessment: pt ambulated into the er, pt is vomiting, vomit is bile in color with small rust color particals, pt has active bowel sounds in all quads, abdomen is soft to the touch, tenderness to the rt abdomen, pt is hypertensive, pt has low tempature, pt hypertensive Physician History: Patient has had right sided abdominal pain, more in the RUQ for the past 6 days with worsening pain and nausea and vomiting over the past three hours. He had an ultrasound on 12/21/2018 and had a colonoscopy on 12/09/2018. Timing/Duration: day(s) (), worse (3 hours ago) Activities at Onset: other (eating makes it worse) Quality: cramping, sharpness Abdominal Pain Onset Location: RUQ Pain Radiation: no radiation Severity of Pain-Max: severe Severity of Pain-Current: severe Modifying Factors: Worsens With: eating Associated Symptoms: nausea, vomiting, No back, No chest pain, No diaphoresis, No diarrhea, No fever/chills, No fatigue, No headache, No heartburn, No loss of appetite, No neck pain, No rash, No shortness of breath, No syncope, No testicular pain, No weakness Previous symptoms: same symptoms as today, recently seen, no recent treatment Allergies/Adverse Reactions: No Known Drug Allergies Allergy (Verified 12/22/18 07:47) Home Medications: Trazodone HCl [Desyrel] 100 mg PO DAILY 11/24/18 [History] Hx Tetanus, Diphtheria Vaccination/Date Given: Yes Hx Influenza Vaccination/Date Given: No Hx Pneumococcal Vaccination/Date Given: No - Review of Systems Constitutional: No Fever, No Chills, No Weight Loss Eyes: No Eye Pain, No Vision Changes Ears, Nose, & Throat: No Mouth Swelling, No Throat Swelling, No Painful Swallowing Respiratory: No Cough, No Dyspnea Cardiac: No Chest Pain, No Palpitations, No Syncope Abdominal/Gastrointestinal: Abdominal Pain, Nausea, Vomiting, No Diarrhea, No Hematemesis, No Hematochezia, No Melena Genitourinary Symptoms: No Dysuria, No Hematuria, No Flank Pain Musculoskeletal: No Back Pain, No Neck Pain Skin: No Pruritis, No Rash Neurological: No Focal Weakness, No Lethargy, No Parasthesia, No Speech Changes , No Tremors Psychological: No Anxiety Endocrine: No Polydipsia, No Excessive Sweating Hematologic/Lymphatic: No Easy Bleeding, No Easy Bruising All Other Systems: Reviewed and Negative - Past Medical History Pertinent Past Medical History: Yes Neurological History: No Pertinent History ENT History: No Pertinent History Cardiac History: No Pertinent History Respiratory History: No Pertinent History Endocrine Medical History: No Pertinent History Musculoskeletal History: Osteoarthritis GI Medical History: Diverticulitis, Polyps, Other History: No Pertinent History Psycho-Social History: No Pertinent History Male Reproductive Disorders: No Pertinent History Other Medical History: hx of diverticulosis, bloody stool have cleared up since antibiotics have cleared. - Past Surgical History Past Surgical History: Yes Neuro Surgical History: No Pertinent History Cardiac: No Pertinent History Respiratory: No Pertinent History Gastrointestinal: Appendectomy, Colon Resection Genitourinary: No Pertinent History Musculoskeletal: Other Male Surgical History: No Pertinent History Other Surgical History: teeth pulled, lipoma removed from R side, pins in left shouder, colon resection due to diverticuli 2016,hernia repair with mesh - Social History Smoking Status: Former smoker Exposure to second hand smoke: No Drug Use: none Patient Lives Alone: No - Nursing Vital Signs Nursing Vital Signs: Initial Vital Signs Temperature 97.4 F 12/22/18 07:33 Pulse Rate 50 L 12/22/18 07:33 Respiratory Rate 12 12/22/18 07:33 Blood Pressure 162/87 12/22/18 07:33 O2 Sat by Pulse Oximetry 100 12/22/18 07:33 Pain Scale Pain Intensity 2 - Physical Exam General Appearance: no apparent distress Eye Exam: PERRL/EOMI, eyes nml inspection, No scleral icterus Ears, Nose, Throat Exam: pharynx normal, moist mucous membranes Neck Exam: normal inspection, non-tender, supple, full range of motion, No meningismus Respiratory Exam: normal breath sounds, airway intact, No respiratory distress, No accessory muscle use, No crackles/rales, No rhonchi, No wheezing, No stridor Cardiovascular Exam: regular rate/rhythm, normal heart sounds, normal peripheral pulses, capillary refill <2 sec Gastrointestinal/Abdomen Exam: soft, normal bowel sounds, tenderness (RUQ), No distention, No mass, No guarding, No pulsatile mass, No hepatomegaly Back Exam: normal inspection, normal range of motion, No CVA tenderness, No vertebral tenderness, No rash Extremity Exam: normal inspection, normal range of motion, pelvis stable, No calf tenderness, No victor hugo's sign, No inflammation, No pedal edema, No swelling Neurologic Exam: alert, oriented x 3, cooperative, drop press hand II-XII nml as tested, normal mood/affect, sensation nml, No motor deficits Skin Exam: normal color, warm, dry, No rash, No jaundice, No cyanosis SpO2 Interpretation: normal SpO2: 100 O2 Delivery: Room Air - Course Nursing assessment & vital signs reviewed: Yes EKG Interpreted by Me: RATE (55), Sinus Dereck, NORMAL AXIS, NORMAL INTERVALS, NORMAL QRS, NORMAL ST-T, Other (no appreciable change in comparision to EKG from 02/06/2017) - CT Exams Abdomen/Pelvis CT Interpretation: Other (per radiologist interpretation: Lung bases demonstrate minimal atelectasis/scarring. No infiltrate or effusion. Heart is not enlarged.noncontrasted stomach and bowel it appear nonobstructed. Stable small fundal gastric diverticulum. Patient reports appendectomy. Stable descending and sigmoid diverticulosis. There has been interval proximal sigmoid resection with intact anastomosis. No free fluid/air. Remaining liver , gallbladder, pancreas, spleen, adrenal glands, kidneys, ureters, and bladder appear normal and CT appearance in attenuation. Stable minimal A. or iliac calcifications. No AAA or pathologic retroperitoneal lymphadenopathy. Osseous structures intact again with minimal degenerative changes. No ventral or inguinal hernias. Overall impression: Stable gastric diverticulum and colonic diverticulosis. Interval proximal sigmoid resection without complications. Remaining CT of the abdomen and pelvis with contrast exam is negative.) - Radiology Ultrasound Exam Gallbladder Ultrasound: Other (pper radiologist interpretation on 12/21/2018: tiny gallbladder polyps. No pericholecystic fluid, gallstones, or wall thickening. Pancreas was obscured due to bowel gas.) Ordered Tests: Active Orders 24 hr Category Date Time Status EKG-ER Only STAT Care 12/22/18 07:35 Active IV Insertion STAT Care 12/22/18 07:35 Active NPO (ED) STAT Care 12/22/18 07:35 Active ABDOMEN AND PELVIS W CONTRAST [CT] Stat Exams 12/22/18 07:57 Taken AMYLASE Stat Lab 12/22/18 08:20 Completed CBC W DIFF Stat Lab 12/22/18 07:43 Completed CMP Stat Lab 12/22/18 07:43 Completed LIPASE Stat Lab 12/22/18 07:43 Completed Lactic Acid Stat Lab 12/22/18 07:35 Completed PROTIME WITH INR Stat Lab 12/22/18 07:43 Completed TROPONIN Q3H Lab 12/22/18 07:43 Completed UA W/RFX UR CULTURE Stat Lab 12/22/18 10:04 Completed Medication Summary Discontinued Medications Generic Name Dose Route Start Last Admin Trade Name Freq PRN Reason Stop Dose Admin Diphenhydramine HCl 25 mg 12/22/18 07:35 12/22/18 07:51 Benadryl 50 Mg/Ml IV 12/22/18 07:36 25 mg STAT ONE Administration Diphenhydramine HCl Confirm 12/22/18 07:47 Benadryl 50 Mg/Ml Administered 12/22/18 07:48 Dose 50 mg .ROUTE .STK-MED ONE Famotidine 20 mg 12/22/18 07:35 12/22/18 07:50 Pepcid 20 Mg Vial IV 12/22/18 07:36 20 mg STAT ONE Administration Famotidine Confirm 12/22/18 07:47 Pepcid 20 Mg Vial Administered 12/22/18 07:48 Dose 20 mg IV .STK-MED ONE Hydromorphone HCl 1 mg 12/22/18 07:35 12/22/18 07:50 Hydromorphone 1 Mg/Ml Ampule IV 12/22/18 07:36 1 mg STAT ONE Administration Hydromorphone HCl Confirm 12/22/18 07:48 Hydromorphone 1 Mg/Ml Ampule Administered 12/22/18 07:49 Dose 1 mg .ROUTE .STK-MED ONE Sodium Chloride 1,000 mls @ 999 mls/hr 12/22/18 07:35 12/22/18 09:10 Sodium Chloride 0.9% 1000 Ml IV 12/22/18 08:35 Infused .Q1H1M STA Infusion Sodium Chloride Confirm 12/22/18 07:48 Sodium Chloride 0.9% 1000 Ml Administered 12/22/18 07:49 Dose 1,000 mls @ ud .ROUTE .STK-MED ONE Ondansetron HCl 4 mg 12/22/18 07:35 12/22/18 07:50 Zofran 4 Mg/2 Ml Vial IV 12/22/18 07:36 4 mg STAT ONE Administration Ondansetron HCl Confirm 12/22/18 07:47 Zofran 4 Mg/2 Ml Vial Administered 12/22/18 07:48 Dose 4 mg .ROUTE .STK-MED ONE Ondansetron HCl 4 mg 12/22/18 09:57 12/22/18 10:00 Zofran 4 Mg/2 Ml Vial IV 12/22/18 09:58 4 mg STAT ONE Administration Ondansetron HCl Confirm 12/22/18 09:57 Zofran 4 Mg/2 Ml Vial Administered 12/22/18 09:58 Dose 4 mg .ROUTE .STK-MED ONE Lab/Rad Data: Laboratory Result Diagrams 12/22/18 07:43 12/22/18 07:43 Laboratory Results 12/22/18 12/22/18 12/22/18 Range/Units 10:04 08:20 07:43 WBC (4.0-10.5) K/mm3 RBC (4.1-5.6) M/mm3 Hgb (12.5-18.0) gm/dl Hct (42-50) % MCV (78-100) fl MCH (26-32) pg MCHC (32-36) g/dl RDW (11.5-14.0) % Plt Count (150-450) K/mm3 MPV (6-9.5) fl Gran % (36.0-66.0) % Eos # (Auto) (0-0.5) Absolute Lymphs (auto) (1.0-4.6) Absolute Monos (auto) (0.0-1.3) Lymphocytes % (24.0-44.0) % Monocytes % (0.0-12.0) % Eosinophils % (0.00-5.0) % Basophils % (0.0-0.4) % Absolute Granulocytes (1.4-6.9) Basophils # (0-0.4) PT (8.83-12.87) SECONDS INR (0.8-3.0) Sodium (137-145) mmol/L Potassium (3.5-5.1) mmol/L Chloride (98-107) mmol/L Carbon Dioxide (22-30) mmol/L Anion Gap (5-15) MEQ/L BUN (9-20) mg/dL Creatinine (0.66-1.25) mg/dL Estimated GFR ML/MIN Glucose (74-106) mg/dL Lactic Acid (0.4-2.0) Calcium (8.4-10.2) mg/dL Total Bilirubin (0.2-1.3) mg/dL AST (17-59) U/L ALT (0-50) U/L Alkaline Phosphatase (38-126) U/L Troponin I < 0.012 (0.000-0.034) ng/mL Serum Total Protein (6.3-8.2) g/dL Albumin (3.5-5.0) g/dL Amylase 62 (30-110) U/L Lipase (23-300) U/L Urine Color YELLOW (YELLOW) Urine Appearance CLEAR (CLEAR) Urine pH 6.0 (5-6) Ur Specific [place] 1.020 (1.005-1.025) Urine Protein NEGATIVE (Negative) Urine Ketones MODERATE (NEGATIVE) Urine Blood NEGATIVE (0-5) Ender/ul Urine Nitrite NEGATIVE (NEGATIVE) Urine Bilirubin NEGATIVE (NEGATIVE) Urine Urobilinogen NEGATIVE (0-1) mg/dL Ur Leukocyte Esterase NEGATIVE (NEGATIVE) Urine WBC (Auto) NONE (0-5) /HPF Urine RBC (Auto) NONE (0-2) /HPF U Epithel Cells (Auto) NONE (FEW) /HPF Urine Bacteria (Auto) NONE (NEGATIVE) /HPF Urine Mucus (Auto) SLIGHT (NEGATIVE) /HPF Urine Culture Reflexed NO (NO) Urine Glucose NEGATIVE (NEGATIVE) mg/dL 12/22/18 12/22/18 12/22/18 Range/Units 07:43 07:43 07:43 WBC 16.6 H (4.0-10.5) K/mm3 RBC 5.08 (4.1-5.6) M/mm3 Hgb 16.4 (12.5-18.0) gm/dl Hct 47.5 (42-50) % MCV 93.5 (78-100) fl MCH 32.3 H (26-32) pg MCHC 34.5 (32-36) g/dl RDW 12.6 (11.5-14.0) % Plt Count 298 (150-450) K/mm3 MPV 10.0 H (6-9.5) fl Gran % 85.6 H (36.0-66.0) % Eos # (Auto) 0.03 (0-0.5) Absolute Lymphs (auto) 1.57 (1.0-4.6) Absolute Monos (auto) 0.75 (0.0-1.3) Lymphocytes % 9.5 L (24.0-44.0) % Monocytes % 4.5 (0.0-12.0) % Eosinophils % 0.2 (0.00-5.0) % Basophils % 0.2 (0.0-0.4) % Absolute Granulocytes 14.20 H (1.4-6.9) Basophils # 0.03 (0-0.4) PT 11.7 (8.83-12.87) SECONDS INR 1.03 (0.8-3.0) Sodium 140 (137-145) mmol/L Potassium 4.2 (3.5-5.1) mmol/L Chloride 102 (98-107) mmol/L Carbon Dioxide 24 (22-30) mmol/L Anion Gap 18.2 H (5-15) MEQ/L BUN 14 (9-20) mg/dL Creatinine 0.69 (0.66-1.25) mg/dL Estimated GFR > 60.0 ML/MIN Glucose 105 (74-106) mg/dL Lactic Acid (0.4-2.0) Calcium 9.7 (8.4-10.2) mg/dL Total Bilirubin 0.70 (0.2-1.3) mg/dL AST 29 (17-59) U/L ALT 22 (0-50) U/L Alkaline Phosphatase 81 (38-126) U/L Troponin I (0.000-0.034) ng/mL Serum Total Protein 7.7 (6.3-8.2) g/dL Albumin 4.6 (3.5-5.0) g/dL Amylase (30-110) U/L Lipase 46 (23-300) U/L Urine Color (YELLOW) Urine Appearance (CLEAR) Urine pH (5-6) Ur Specific [place] (1.005-1.025) Urine Protein (Negative) Urine Ketones (NEGATIVE) Urine Blood (0-5) Ender/ul Urine Nitrite (NEGATIVE) Urine Bilirubin (NEGATIVE) Urine Urobilinogen (0-1) mg/dL Ur Leukocyte Esterase (NEGATIVE) Urine WBC (Auto) (0-5) /HPF Urine RBC (Auto) (0-2) /HPF U Epithel Cells (Auto) (FEW) /HPF Urine Bacteria (Auto) (NEGATIVE) /HPF Urine Mucus (Auto) (NEGATIVE) /HPF Urine Culture Reflexed (NO) Urine Glucose (NEGATIVE) mg/dL 12/22/18 Range/Units 07:35 WBC (4.0-10.5) K/mm3 RBC (4.1-5.6) M/mm3 Hgb (12.5-18.0) gm/dl Hct (42-50) % MCV (78-100) fl MCH (26-32) pg MCHC (32-36) g/dl RDW (11.5-14.0) % Plt Count (150-450) K/mm3 MPV (6-9.5) fl Gran % (36.0-66.0) % Eos # (Auto) (0-0.5) Absolute Lymphs (auto) (1.0-4.6) Absolute Monos (auto) (0.0-1.3) Lymphocytes % (24.0-44.0) % Monocytes % (0.0-12.0) % Eosinophils % (0.00-5.0) % Basophils % (0.0-0.4) % Absolute Granulocytes (1.4-6.9) Basophils # (0-0.4) PT (8.83-12.87) SECONDS INR (0.8-3.0) Sodium (137-145) mmol/L Potassium (3.5-5.1) mmol/L Chloride (98-107) mmol/L Carbon Dioxide (22-30) mmol/L Anion Gap (5-15) MEQ/L BUN (9-20) mg/dL Creatinine (0.66-1.25) mg/dL Estimated GFR ML/MIN Glucose (74-106) mg/dL Lactic Acid 1.3 (0.4-2.0) Calcium (8.4-10.2) mg/dL Total Bilirubin (0.2-1.3) mg/dL AST (17-59) U/L ALT (0-50) U/L Alkaline Phosphatase (38-126) U/L Troponin I (0.000-0.034) ng/mL Serum Total Protein (6.3-8.2) g/dL Albumin (3.5-5.0) g/dL Amylase (30-110) U/L Lipase (23-300) U/L Urine Color (YELLOW) Urine Appearance (CLEAR) Urine pH (5-6) Ur Specific [place] (1.005-1.025) Urine Protein (Negative) Urine Ketones (NEGATIVE) Urine Blood (0-5) Ender/ul Urine Nitrite (NEGATIVE) Urine Bilirubin (NEGATIVE) Urine Urobilinogen (0-1) mg/dL Ur Leukocyte Esterase (NEGATIVE) Urine WBC (Auto) (0-5) /HPF Urine RBC (Auto) (0-2) /HPF U Epithel Cells (Auto) (FEW) /HPF Urine Bacteria (Auto) (NEGATIVE) /HPF Urine Mucus (Auto) (NEGATIVE) /HPF Urine Culture Reflexed (NO) Urine Glucose (NEGATIVE) mg/dL - Progress Progress: improved, re-examined Progress Note: 12/22/18 08:23 Reviewed colonoscopy report from 12/09/[address] Erma Sandoval MD, General Surgery, It was a negative colonoscopy for any abnormalities with normal anastomosis from the sigmoid colectomy he had performed in the past as the rest of the colon was present except for the removed sigmoid portion. 12/22/18 09:57 Pain has resolved. Abdomen is soft, non-distended, non-tender with no CVA tenderness bilaterally. Patient has some mild hiccups and nausea has returned. 12/22/18 10:37 Patient has no abdominal pain on repeat examination and nausea has resolved after IV medication. Discussed with .: Kimberly (@10:40, spoke with Dr Barahona, patient's physician and hospitalist about patient's presentation, lab results and imaging studies results, . We agreed patient does not require inpatient admission at this time and can be discharged home with follow-up in the next day) Counseled pt/family regarding: lab results, diagnosis, need for follow-up, rad results - Departure Departure Disposition: Home Clinical Impression: RUQ abdominal pain, Gastric diverticulum without complication, Diverticulosis of colon (without mention of hemorrhage), Gallbladder polyp, Elevated blood pressure reading without diagnosis of hypertension Nausea & vomiting Qualifiers: Vomiting type: unspecified Vomiting Intractability: non-intractable Qualified Code(s): R11.2 - Nausea with vomiting, unspecified Leukocytosis, unspecified Qualifiers: Leukocytosis type: unspecified Qualified Code(s): D72.829 - Elevated white blood cell count, unspecified Condition: Good Critical Care Time: No Referrals: SHANTEL BARAHONA MD [Primary Care Provider] - 12/23/18 ERMA SANDOVAL [ACTIVE STAFF] - 12/22/18 (call the office for an appointment) Instructions: Vomiting -- Adult, Acute Abdomen (Belly Pain), Adult (DC), Diverticulosis (DC), Gallstones (DC) Additional Instructions: Return immediately back to the emergency room any worsening pain, worsening vomiting, any fevers, any chest pain, any shortness of breath, or any other concerning signs or symptoms that were not present on today's emergency room visit for immediate evaluation in the emergency department. Your ultrasound showed gallbladder polyps and your CT scan of the abdomen and pelvis showed a gastric diverticulum and left-sided colonic diverticulosis. Followup with her general surgeon in the next 12-24 hours as well as followup with your primary care physician in the next 12-24 hours. Prescriptions: Ondansetron ODT 4 MG [Zofran Odt 4 mg] 4 mg PO Q8H PRN PRN #10 tab.rapdis PRN Reason: Nausea Etodolac 400 mg [Lodine 400 mg] 400 mg PO BID PRN PRN #20 tablet PRN Reason: Pain
[2018-12-22 10:05] VITALS: BP 159/87; PULSE 52
[2018-12-22 10:18] LABS: Appearance CLEAR (CLEAR); Bilirubin NEGATIVE (NEGATIVE); Blood NEGATIVE Ery/ul (0-5); Glucose NEGATIVE (NEGATIVE); Ketones MODERATE (NEGATIVE); Leukocyte Esterase NEGATIVE (NEGATIVE); Mucus SLIGHT /HPF (NEGATIVE); Nitrite NEGATIVE (NEGATIVE); Protein,Urine Dip NEGATIVE (Negative); Urobilinogen NEGATIVE mg/dL (0-1)
[2018-12-22 10:39] VITALS: O2SAT 100
--- NOTE | 2018-12-22 12:15 | XRAY ---
Indication: Nausea and vomiting. Multiple contiguous axial images obtained through the abdomen and pelvis using 80 cc Isovue 370 contrast only. Comparison: January 21, 2017. Lung bases demonstrates minimal atelectasis/scarring. No infiltrate or effusion. Heart is not enlarged. Noncontrasted stomach and bowel loops appear nonobstructed. Stable small fundal gastric diverticulum. Patient reports appendectomy. Stable descending and sigmoid diverticulosis. There has been interval proximal sigmoid resection with intact anastomosis. No free fluid/air. Remaining liver, gallbladder, pancreas, spleen, adrenal glands, kidneys, ureters, and bladder appear normal in CT appearance and attenuation and. Stable minimal aortoiliac calcifications. No AAA or pathologic retroperitoneal lymphadenopathy. Osseous structures intact again with minimal degenerative changes. No ventral or inguinal hernias. Impression: 1. Stable gastric diverticulum and colonic diverticulosis. 2. Interval proximal sigmoid resection without complications. 3. Remaining CT abdomen/pelvis with contrast exam is negative. CT DI 15.02
== END 2018-12-22 11:03 | disposition home or self-care (01) ==
LOC: ED 07:27
DX: R10.11 Right upper quadrant pain (principal); K31.4 Gastric diverticulum; K57.90 Diverticulosis of intestine, part unspecified, without perforation or abscess without bleeding; K82.4 Cholesterolosis of gallbladder; E03.0 Congenital hypothyroidism with diffuse goiter; R11.2 Nausea with vomiting, unspecified; D72.829 Elevated white blood cell count, unspecified
CPT/HCPCS: 36415; 74177; 80053; 81001; 82150; 83605; 83690; 84484; 85025; 85610; 93005; 96360; 96374; 96375; 99284; J1170; J1200; J2405

== ENCOUNTER 2018-12-23 20:55 | Emergency (ER) | payer OTHER ==
[2018-12-23] MEDS ORDERED: Sodium Chloride 0.9% 1000 ML 1,000 ML IV STA (21:19)
[2018-12-23] MEDS ORDERED: TORAdol 30 mg Injection IV ONE (21:19)
[2018-12-23] MEDS ORDERED: SUBLIMAZE 100 MCG/2 ML IV ONE (21:19)
[2018-12-23] MEDS ORDERED: BENADRYL 50 MG/ML IV ONE (21:19)
[2018-12-23] MEDS ORDERED: Zofran 4 MG/2 ML VIAL IV ONE (21:19)
[2018-12-23] MEDS ORDERED: Pepcid 20 MG VIAL IV ONE ×2 (21:19→21:43)
[2018-12-23] MEDS ORDERED: Zofran 4 MG/2 ML VIAL ONE (21:42)
[2018-12-23] MEDS ORDERED: BENADRYL 50 MG/ML ONE (21:43)
[2018-12-23] MEDS ORDERED: SUBLIMAZE 100 MCG/2 ML ONE (21:43)
[2018-12-23] MEDS ORDERED: TORAdol 30 mg Injection ONE (21:43)
[2018-12-23 21:44] LABS: Absolute Neutrophil Ct (ANC) 15.35 (1.4-6.9); BASOPHIL % 0.2 % (0.0-0.4); Basophil (Absolute #) 0.04 (0-0.4); Eosinophil % 0.2 % (0.00-5.0); Eosinophil (Absolute #) 0.03 (0-0.5); Hematocrit 47.5 % (42-50); Hemoglobin 16.8 gm/dl (12.5-18.0); Lymphocyte (Absolute #) 1.78 (1.0-4.6); Lymphocytes % 9.7 % (24.0-44.0); Mean Cell Volume 90.8 fl (78-100); Mean Corpuscular Hemoglobin 32.1 pg (26-32); Mean Corpuscular Hgb Concent. 35.4 g/dl (32-36); Monocyte (Absolute #) 1.13 (0.0-1.3); Monocytes % 6.2 % (0.0-12.0); Neutrophil % 83.7 % (36.0-66.0); Platelet Count 325 K/mm3 (150-450); Red Blood Count 5.23 M/mm3 (4.1-5.6); Red Cell Distribution Width 12.2 % (11.5-14.0); White Blood Count 18.3 K/mm3 (4.0-10.5)
[2018-12-23] MEDS ORDERED: Sodium Chloride 0.9% 1000 ML 1,000 ML ONE (21:44)
--- NOTE | 2018-12-23 21:44 | ERPHSYRPT ---
- History of Present Illness Time Seen by Provider: 12/23/18 21:25 Historian: patient, family Exam Limitations: no limitations Patient Subjective Stated Complaint: Pt states, "I am miserable, I can't stand this, my abd hurts so bad and I can't quit vomiting". Triage Nursing Assessment: pt ambulated to rm 3, alert and oriented, at bedside. Pt c/o abd pain to rt side which radiates up under rt ribs. Pt vomiting at this time. Pt saw Dr. Mckinney today, got Rx, but started vomiting at 1730 and can't quit. Scheduled for hida scan for Thursday. Lungs clear, heart tones reg, abd soft with active bs x4 quad, tender on palpation. Physician History: Patient has been having worsening RUQ abdominal pain for the past one week. Patient had a worsening flare-up of pain this evening. Patient has an appointment for a HIDA scan on 12/27/2018. Timing/Duration: hour(s) (4) Activities at Onset: none Quality: cramping, stabbing Abdominal Pain Onset Location: RUQ, LUQ Pain Radiation: chest (right rib cage) Severity of Pain-Max: severe Severity of Pain-Current: severe Modifying Factors: Worsens With: eating Associated Symptoms: nausea, vomiting, weakness (generalized), No back, No chest pain, No diaphoresis, No diarrhea, No fever/chills, No fatigue, No headache, No heartburn, No neck pain, No rash, No shortness of breath, No syncope, No testicular pain Previous symptoms: same symptoms as today, recently seen, recently treated Allergies/Adverse Reactions: No Known Drug Allergies Allergy (Verified 12/22/18 07:47) Home Medications: Trazodone HCl [Desyrel] 100 mg PO DAILY 11/24/18 [History] Hydrocodone/Acetaminophen [Hydrocodone-Acetamin 5-325 mg] 5 - 325 mg PO Q6HPRN PRN 12/23/18 [History] Hx Tetanus, Diphtheria Vaccination/Date Given: Yes Hx Influenza Vaccination/Date Given: No Hx Pneumococcal Vaccination/Date Given: No Immunizations Up to Date: Yes - Review of Systems Constitutional: Fatigue, No Fever, No Chills Eyes: No Eye Pain, No Vision Changes Ears, Nose, & Throat: No Mouth Swelling, No Throat Swelling Respiratory: No Cyanosis Cardiac: No Chest Pain, No Palpitations, No Syncope Abdominal/Gastrointestinal: Abdominal Pain, Nausea, Vomiting, No Hematemesis, No Hematochezia, No Melena Genitourinary Symptoms: No Dysuria, No Hematuria, No Urgency, No Urinary Retention, No Flank Pain Musculoskeletal: No Back Pain, No Neck Pain Skin: No Pruritis, No Rash Neurological: No Focal Weakness, No Parasthesia Psychological: No Anxiety Endocrine: No Polydipsia, No Excessive Sweating Hematologic/Lymphatic: No Easy Bleeding, No Easy Bruising All Other Systems: Reviewed and Negative - Past Medical History Pertinent Past Medical History: Yes Neurological History: No Pertinent History ENT History: No Pertinent History Cardiac History: No Pertinent History Respiratory History: No Pertinent History Endocrine Medical History: No Pertinent History Musculoskeletal History: Osteoarthritis GI Medical History: Diverticulitis, Diverticulosis, Polyps, Other History: No Pertinent History Psycho-Social History: No Pertinent History Male Reproductive Disorders: No Pertinent History Other Medical History: hx of diverticulosis, bloody stool have cleared up since antibiotics have cleared. - Past Surgical History Past Surgical History: Yes Neuro Surgical History: No Pertinent History Cardiac: No Pertinent History Respiratory: No Pertinent History Gastrointestinal: Appendectomy, Colon Resection Genitourinary: No Pertinent History Musculoskeletal: Other Male Surgical History: No Pertinent History Other Surgical History: teeth pulled, lipoma removed from R side, pins in left shouder, colon resection due to diverticuli 2016 - Social History Smoking Status: Current some day smoker How long have you smoked: 6 yrs Exposure to second hand smoke: Yes Drug Use: none Patient Lives Alone: No - Nursing Vital Signs Nursing Vital Signs: Initial Vital Signs Temperature 98.4 F 12/23/18 21:16 Pulse Rate 59 L 12/23/18 21:16 Respiratory Rate 17 12/23/18 21:16 Blood Pressure 172/94 12/23/18 21:16 O2 Sat by Pulse Oximetry 100 12/23/18 21:16 Pain Scale Pain Intensity 2 - Physical Exam General Appearance: mild distress Eye Exam: PERRL/EOMI, eyes nml inspection, No scleral icterus Ears, Nose, Throat Exam: pharynx normal, moist mucous membranes, No pharyngeal erythema Neck Exam: normal inspection, non-tender, supple, full range of motion, No meningismus, No Brudzinski Respiratory Exam: normal breath sounds, lungs clear, airway intact, No chest tenderness, No respiratory distress, No accessory muscle use, No crackles/rales , No rhonchi, No wheezing, No stridor Cardiovascular Exam: regular rate/rhythm, normal heart sounds, normal peripheral pulses, capillary refill <2 sec, No murmur Gastrointestinal/Abdomen Exam: soft, normal bowel sounds, tenderness (RUQ and LUQ), No distention, No mass, No guarding, No rebound Back Exam: normal inspection, normal range of motion, No CVA tenderness, No vertebral tenderness, No rash Extremity Exam: normal inspection, normal range of motion, pelvis stable, No calf tenderness, No victor hugo's sign, No inflammation, No pedal edema Neurologic Exam: alert, oriented x 3, cooperative, bolt threader II-XII nml as tested, normal mood/affect, sensation nml, No motor deficits, No motor weakness Skin Exam: normal color, warm, dry, No rash, No petechiae, No jaundice, No cyanosis SpO2 Interpretation: normal SpO2: 100 O2 Delivery: Room Air - Course Nursing assessment & vital signs reviewed: Yes Ordered Tests: Active Orders 24 hr Category Date Time Status EKG-ER Only STAT Care 12/23/18 21:19 Active IV Insertion STAT Care 12/23/18 21:19 Active NPO (ED) STAT Care 12/23/18 21:19 Active AMYLASE Stat Lab 12/23/18 21:30 Completed CBC W DIFF Stat Lab 12/23/18 21:30 Completed CMP Stat Lab 12/23/18 21:30 Completed LIPASE Stat Lab 12/23/18 21:30 Completed Lactic Acid Stat Lab 12/23/18 21:19 Completed TROPONIN Q3H Lab 12/23/18 21:30 Completed TROPONIN Q3H Lab 12/24/18 00:30 Ordered TROPONIN Q3H Lab 12/24/18 03:30 Ordered TROPONIN Q3H Lab 12/24/18 06:30 Ordered TROPONIN Q3H Lab 12/24/18 09:30 Ordered UA W/RFX UR CULTURE Stat Lab 12/23/18 22:30 Completed Transfer Order Routine Transfer 12/23/18 Ordered Medication Summary Discontinued Medications Generic Name Dose Route Start Last Admin Trade Name Freq PRN Reason Stop Dose Admin Diphenhydramine HCl 25 mg 12/23/18 21:19 12/23/18 22:06 Benadryl 50 Mg/Ml IV 10/24/19 21:20 25 mg STAT ONE Administration Diphenhydramine HCl Confirm 12/23/18 21:43 Benadryl 50 Mg/Ml Administered 12/23/18 21:44 Dose 50 mg .ROUTE .STK-MED ONE Famotidine 20 mg 12/23/18 21:19 12/23/18 21:54 Pepcid 20 Mg Vial IV 12/23/18 21:20 20 mg STAT ONE Administration Famotidine Confirm 12/23/18 21:43 Pepcid 20 Mg Vial Administered 12/23/18 21:44 Dose 20 mg IV .STK-MED ONE Fentanyl Citrate 50 mcg 12/23/18 21:19 12/23/18 22:09 Sublimaze 100 Mcg/2 Ml IV 12/23/18 21:20 50 mcg STAT ONE Administration Fentanyl Citrate Confirm 12/23/18 21:43 Sublimaze 100 Mcg/2 Ml Administered 12/23/18 21:44 Dose 100 mcg .ROUTE .STK-MED ONE Sodium Chloride 1,000 mls @ 999 mls/hr 12/23/18 21:19 12/23/18 21:46 Sodium Chloride 0.9% 1000 Ml IV 12/23/18 22:19 999 mls/hr .Q1H1M STA Administration Sodium Chloride Confirm 12/23/18 21:44 Sodium Chloride 0.9% 1000 Ml Administered 12/23/18 21:45 Dose 1,000 mls @ ud .ROUTE .STK-MED ONE Ketorolac Tromethamine 30 mg 12/23/18 21:19 12/23/18 21:57 Toradol 30 Mg Injection IV 12/23/18 21:20 30 mg STAT ONE Administration Ketorolac Tromethamine Confirm 12/23/18 21:43 Toradol 30 Mg Injection Administered 12/23/18 21:44 Dose 30 mg .ROUTE .STK-MED ONE Ondansetron HCl 4 mg 12/23/18 21:19 12/23/18 21:50 Zofran 4 Mg/2 Ml Vial IV 12/23/18 21:20 4 mg STAT ONE Administration Ondansetron HCl Confirm 12/23/18 21:42 Zofran 4 Mg/2 Ml Vial Administered 12/23/18 21:43 Dose 4 mg .ROUTE .STK-MED ONE Lab/Rad Data: Laboratory Result Diagrams 12/23/18 21:30 12/23/18 21:30 Laboratory Results 12/23/18 12/23/18 12/23/18 Range/Units 22:30 21:30 21:30 WBC (4.0-10.5) K/mm3 RBC (4.1-5.6) M/mm3 Hgb (12.5-18.0) gm/dl Hct (42-50) % MCV (78-100) fl MCH (26-32) pg MCHC (32-36) g/dl RDW (11.5-14.0) % Plt Count (150-450) K/mm3 MPV (6-9.5) fl Gran % (36.0-66.0) % Eos # (Auto) (0-0.5) Absolute Lymphs (auto) (1.0-4.6) Absolute Monos (auto) (0.0-1.3) Lymphocytes % (24.0-44.0) % Monocytes % (0.0-12.0) % Eosinophils % (0.00-5.0) % Basophils % (0.0-0.4) % Absolute Granulocytes (1.4-6.9) Basophils # (0-0.4) Sodium 135 L (137-145) mmol/L Potassium 3.5 (3.5-5.1) mmol/L Chloride 97 L (98-107) mmol/L Carbon Dioxide 25 (22-30) mmol/L Anion Gap 16.5 H (5-15) MEQ/L BUN 8 L (9-20) mg/dL Creatinine 0.64 L (0.66-1.25) mg/dL Estimated GFR > 60.0 ML/MIN Glucose 127 H (74-106) mg/dL Lactic Acid (0.4-2.0) Calcium 9.3 (8.4-10.2) mg/dL Total Bilirubin 0.70 (0.2-1.3) mg/dL AST 27 (17-59) U/L ALT 22 (0-50) U/L Alkaline Phosphatase 83 (38-126) U/L Troponin I < 0.012 (0.000-0.034) ng/mL Serum Total Protein 7.7 (6.3-8.2) g/dL Albumin 4.5 (3.5-5.0) g/dL Amylase 74 (30-110) U/L Lipase 78 (23-300) U/L Urine Color YELLOW (YELLOW) Urine Appearance CLEAR (CLEAR) Urine pH 8.0 (5-6) Ur Specific [place] 1.019 (1.005-1.025) Urine Protein NEGATIVE (Negative) Urine Ketones MODERATE (NEGATIVE) Urine Blood NEGATIVE (0-5) Ender/ul Urine Nitrite NEGATIVE (NEGATIVE) Urine Bilirubin NEGATIVE (NEGATIVE) Urine Urobilinogen 4 (0-1) mg/dL Ur Leukocyte Esterase NEGATIVE (NEGATIVE) Urine WBC (Auto) NONE (0-5) /HPF Urine RBC (Auto) NONE (0-2) /HPF U Epithel Cells (Auto) NONE (FEW) /HPF Urine Bacteria (Auto) NONE (NEGATIVE) /HPF Urine Mucus (Auto) SLIGHT (NEGATIVE) /HPF Urine Culture Reflexed NO (NO) Urine Glucose NEGATIVE (NEGATIVE) mg/dL 12/23/18 12/23/18 Range/Units 21:30 21:19 WBC 18.3 H (4.0-10.5) K/mm3 RBC 5.23 (4.1-5.6) M/mm3 Hgb 16.8 (12.5-18.0) gm/dl Hct 47.5 (42-50) % MCV 90.8 (78-100) fl MCH 32.1 H (26-32) pg MCHC 35.4 (32-36) g/dl RDW 12.2 (11.5-14.0) % Plt Count 325 (150-450) K/mm3 MPV 10.0 H (6-9.5) fl Gran % 83.7 H (36.0-66.0) % Eos # (Auto) 0.03 (0-0.5) Absolute Lymphs (auto) 1.78 (1.0-4.6) Absolute Monos (auto) 1.13 (0.0-1.3) Lymphocytes % 9.7 L (24.0-44.0) % Monocytes % 6.2 (0.0-12.0) % Eosinophils % 0.2 (0.00-5.0) % Basophils % 0.2 (0.0-0.4) % Absolute Granulocytes 15.35 H (1.4-6.9) Basophils # 0.04 (0-0.4) Sodium (137-145) mmol/L Potassium (3.5-5.1) mmol/L Chloride (98-107) mmol/L Carbon Dioxide (22-30) mmol/L Anion Gap (5-15) MEQ/L BUN (9-20) mg/dL Creatinine (0.66-1.25) mg/dL Estimated GFR ML/MIN Glucose (74-106) mg/dL Lactic Acid 1.4 (0.4-2.0) Calcium (8.4-10.2) mg/dL Total Bilirubin (0.2-1.3) mg/dL AST (17-59) U/L ALT (0-50) U/L Alkaline Phosphatase (38-126) U/L Troponin I (0.000-0.034) ng/mL Serum Total Protein (6.3-8.2) g/dL Albumin (3.5-5.0) g/dL Amylase (30-110) U/L Lipase (23-300) U/L Urine Color (YELLOW) Urine Appearance (CLEAR) Urine pH (5-6) Ur Specific [place] (1.005-1.025) Urine Protein (Negative) Urine Ketones (NEGATIVE) Urine Blood (0-5) Ender/ul Urine Nitrite (NEGATIVE) Urine Bilirubin (NEGATIVE) Urine Urobilinogen (0-1) mg/dL Ur Leukocyte Esterase (NEGATIVE) Urine WBC (Auto) (0-5) /HPF Urine RBC (Auto) (0-2) /HPF U Epithel Cells (Auto) (FEW) /HPF Urine Bacteria (Auto) (NEGATIVE) /HPF Urine Mucus (Auto) (NEGATIVE) /HPF Urine Culture Reflexed (NO) Urine Glucose (NEGATIVE) mg/dL - Progress Progress: improved Progress Note: 12/23/18 22:11 @22:00: [employer] called to notify patient is not to eat or drink anything and not to have any further pain medication due to having the HIDA scan on 12/24/2018 @ 11:00 12/23/18 23:03 Pain is down to a 2/10 and no further nausea and vomiting. Discussed with : Kimberly (@21:50, discussed the patient with Dr Mckinney, hospitalist. Dr Mckinney accepted the patient for admission and we will do the HIDA scan for 12/23/2018 as the patient has an opening on 12/24/2018 @ 11:00) Will see patient in: hospital (observation) ([facility] to telemetry) Counseled pt/family regarding: lab results, diagnosis, need for follow-up, rad results - Departure Departure Disposition: Home, Extended Care Facility Clinical Impression: Gastric diverticulum without complication, Intractable upper abdominal pain, Intractable nausea and vomiting, Elevated blood pressure reading without diagnosis of hypertension, Mild dehydration Condition: Good Critical Care Time: No Referrals: SHANTEL MCKINNEY MD [Primary Care Provider] -
[2018-12-23 21:58] LABS: ALBUMIN 4.5 g/dL (3.5-5.0); ALKALINE PHOSPHATASE 83 U/L (38-126); AMYLASE 74 U/L (30-110); ANION GAP 16.5 MEQ/L (5-15); BLOOD UREA NITROGEN 8 mg/dL (9-20); CHLORIDE 97 mmol/L (98-107); Calcium 9.3 mg/dL (8.4-10.2); Carbon Dioxide 25 mmol/L (22-30); Creatinine 1 0.64 mg/dL (0.66-1.25); Glucose 127 mg/dL (74-106); LIPASE 78 U/L (23-300); Potassium 3.5 mmol/L (3.5-5.1); SGOT/AST 27 U/L (17-59); SGPT/ALT 22 U/L (0-50); SODIUM 135 mmol/L (137-145); Total Protein 7.7 g/dL (6.3-8.2)
[2018-12-23 22:53] LABS: Appearance CLEAR (CLEAR); Bilirubin NEGATIVE (NEGATIVE); Blood NEGATIVE Ery/ul (0-5); Glucose NEGATIVE (NEGATIVE); Ketones MODERATE (NEGATIVE); Leukocyte Esterase NEGATIVE (NEGATIVE); Mucus SLIGHT /HPF (NEGATIVE); Nitrite NEGATIVE (NEGATIVE); Protein,Urine Dip NEGATIVE (Negative); Specific Gravity 1.019 (1.005-1.025); Urobilinogen 4 mg/dL (0-1)
[2018-12-23] MEDS ORDERED: TYLENOL 325 MG PO PRN (23:24)
[2018-12-23] MEDS ORDERED: BENADRYL 50 MG/ML IV PRN (23:24)
[2018-12-24 05:46] LABS: Absolute Neutrophil Ct (ANC) 11.96 (1.4-6.9); BASOPHIL % 0.2 % (0.0-0.4); Basophil (Absolute #) 0.03 (0-0.4); Eosinophil % 0.4 % (0.00-5.0); Eosinophil (Absolute #) 0.06 (0-0.5); Hematocrit 43.2 % (42-50); Hemoglobin 14.5 gm/dl (12.5-18.0); Lymphocyte (Absolute #) 2.42 (1.0-4.6); Lymphocytes % 15.2 % (24.0-44.0); Mean Cell Volume 93.3 fl (78-100); Mean Corpuscular Hemoglobin 31.3 pg (26-32); Mean Corpuscular Hgb Concent. 33.6 g/dl (32-36); Mean Platelet Volume 10.7 fl (6-9.5); Monocyte (Absolute #) 1.41 (0.0-1.3); Monocytes % 8.9 % (0.0-12.0); Neutrophil % 75.3 % (36.0-66.0); Platelet Count 294 K/mm3 (150-450); Red Blood Count 4.63 M/mm3 (4.1-5.6); Red Cell Distribution Width 12.3 % (11.5-14.0); White Blood Count 15.9 K/mm3 (4.0-10.5)
[2018-12-24 06:19] LABS: ANION GAP 13.5 MEQ/L (5-15); BLOOD UREA NITROGEN 6 mg/dL (9-20); CHLORIDE 102 mmol/L (98-107); Calcium 8.3 mg/dL (8.4-10.2); Carbon Dioxide 24 mmol/L (22-30); Creatinine 1 0.63 mg/dL (0.66-1.25); Glucose 89 mg/dL (74-106); Potassium 3.5 mmol/L (3.5-5.1); SODIUM 137 mmol/L (137-145)
[2018-12-24] MEDS: Zofran 4 MG/2 ML VIAL IV PRN ×3 (07:51→21:12)
--- NOTE | 2018-12-24 08:17 | PCM.HP ---
History of Present Illness - Chief Complaint Chief Complaint: Intractable Abdominal Pain, Intractable Nausea and Vomiting, History of Present Illness: Mr.BOWEN FOX is a 53 year old male who presented to the ER last night, he was seen in the office earlier in the day. having right upper quad pain and persistent vomiting. hx of sigmoid colon resection by Dr Sandoval for diverticulosis, no blood in the stool, no fever. - Review of Systems Constitutional: No Fever, No Chills Respiratory: No Cough, No Short Of Breath Cardiac: No Chest Pain, No Edema, No Syncope Abdominal/Gastrointestinal: Abdominal Pain, Nausea, Vomiting, No Diarrhea, No Constipation Genitourinary Symptoms: No Dysuria Skin: No Rash All Other Systems: Reviewed and Negative Medications & Allergies Home Medications: Home Medication List Trazodone HCl [Desyrel] 100 mg PO DAILY 11/24/18 [History Confirmed 12/23/18] Ondansetron ODT 4 MG [Zofran Odt 4 mg] 4 mg PO Q8H PRN PRN #10 tab.rapdis 12/22/18 [Rx Confirmed 12/23/18] Hydrocodone/Acetaminophen [Hydrocodone-Acetamin 5-325 mg] 5 - 325 mg PO Q6HPRN PRN 12/23/18 [History Confirmed 12/23/18] Allergies/Adverse Reactions: Allergies Allergy/AdvReac Type Severity Reaction Status Date / Time No Known Drug Allergies Allergy Verified 12/22/18 07:47 - Past Medical History Past Medical History: Yes Neurological History: No Pertinent History ENT History: No Pertinent History Cardiac History: No Pertinent History Respiratory History: No Pertinent History Endocrine Medical History: No Pertinent History Musculoskelatal History: Osteoarthritis GI Medical History: Diverticulitis, Diverticulosis, Polyps, Other History: No Pertinent History Pyscho-Social History: No Pertinent History Male Reproductive Disorders: No Pertinent History Comment: hx of diverticulosis, bloody stool have cleared up since antibiotics have cleared. - Past Surgical History Past Surgical History: Yes Neuro Surgical History: No Pertinent History Cardiac History: No Pertinent History Respiratory Surgery: No Pertinent History GI Surgical History: Appendectomy, Colon Resection Genitourinary Surgical Hx: No Pertinent History Musculskeletal Surgical Hx: Other Male Surgical History: No Pertinent History Other Surgical History: teeth pulled, lipoma removed from R side, pins in left shouder, colon resection due to diverticuli 2016 - Social History Smoking Status: Light tobacco smoker How long have you smoked: 6 yrs Exposure to second hand smoke: Yes Alcohol: Occasionally Drug Use: none - Physical Exam Vital Signs: Vital Signs - 24 hr Temp Pulse Resp BP Pulse Ox 12/24/18 07:45 99 F 65 18 138/77 96 12/24/18 03:49 98.7 F 58 L 18 174/81 97 12/24/18 00:01 98.8 F 62 14 139/75 98 12/23/18 23:55 98 12/23/18 23:04 100 12/23/18 22:50 60 18 154/90 98 12/23/18 22:40 52 L 18 137/91 99 12/23/18 21:16 98.4 F 59 L 17 172/94 100 General Appearance: no apparent distress, alert Eye Exam: PERRL/EOMI, eyes nml inspection Respiratory Exam: normal breath sounds, lungs clear, No respiratory distress Cardiovascular Exam: regular rate/rhythm, normal heart sounds, normal peripheral pulses Gastrointestinal/Abdomen Exam: soft, normal bowel sounds, No tenderness, No mass Extremity Exam: normal inspection, normal range of motion, pelvis stable Skin Exam: normal color, warm, dry, No rash Results - Labs Lab/Micro Results: Lab Results-Last 24 Hours 12/23/18 12/23/18 12/23/18 Range/Units 21:19 21:30 21:30 WBC 18.3 H (4.0-10.5) K/mm3 RBC 5.23 (4.1-5.6) M/mm3 Hgb 16.8 (12.5-18.0) gm/dl Hct 47.5 (42-50) % MCV 90.8 (78-100) fl MCH 32.1 H (26-32) pg MCHC 35.4 (32-36) g/dl RDW 12.2 (11.5-14.0) % Plt Count 325 (150-450) K/mm3 MPV 10.0 H (6-9.5) fl Gran % 83.7 H (36.0-66.0) % Eos # (Auto) 0.03 (0-0.5) Absolute Lymphs (auto) 1.78 (1.0-4.6) Absolute Monos (auto) 1.13 (0.0-1.3) Lymphocytes % 9.7 L (24.0-44.0) % Monocytes % 6.2 (0.0-12.0) % Eosinophils % 0.2 (0.00-5.0) % Basophils % 0.2 (0.0-0.4) % Absolute Granulocytes 15.35 H (1.4-6.9) Basophils # 0.04 (0-0.4) Sodium 135 L (137-145) mmol/L Potassium 3.5 (3.5-5.1) mmol/L Chloride 97 L (98-107) mmol/L Carbon Dioxide 25 (22-30) mmol/L Anion Gap 16.5 H (5-15) MEQ/L BUN 8 L (9-20) mg/dL Creatinine 0.64 L (0.66-1.25) mg/dL Estimated GFR > 60.0 ML/MIN Glucose 127 H (74-106) mg/dL Lactic Acid 1.4 (0.4-2.0) Calcium 9.3 (8.4-10.2) mg/dL Total Bilirubin 0.70 (0.2-1.3) mg/dL AST 27 (17-59) U/L ALT 22 (0-50) U/L Alkaline Phosphatase 83 (38-126) U/L Troponin I (0.000-0.034) ng/mL Serum Total Protein 7.7 (6.3-8.2) g/dL Albumin 4.5 (3.5-5.0) g/dL Amylase 74 (30-110) U/L Lipase 78 (23-300) U/L Urine Color (YELLOW) Urine Appearance (CLEAR) Urine pH (5-6) Ur Specific [place] (1.005-1.025) Urine Protein (Negative) Urine Ketones (NEGATIVE) Urine Blood (0-5) Ender/ul Urine Nitrite (NEGATIVE) Urine Bilirubin (NEGATIVE) Urine Urobilinogen (0-1) mg/dL Ur Leukocyte Esterase (NEGATIVE) Urine WBC (Auto) (0-5) /HPF Urine RBC (Auto) (0-2) /HPF U Epithel Cells (Auto) (FEW) /HPF Urine Bacteria (Auto) (NEGATIVE) /HPF Urine Mucus (Auto) (NEGATIVE) /HPF Urine Culture Reflexed (NO) Urine Glucose (NEGATIVE) mg/dL 12/23/18 12/23/18 12/24/18 Range/Units 21:30 22:30 00:50 WBC (4.0-10.5) K/mm3 RBC (4.1-5.6) M/mm3 Hgb (12.5-18.0) gm/dl Hct (42-50) % MCV (78-100) fl MCH (26-32) pg MCHC (32-36) g/dl RDW (11.5-14.0) % Plt Count (150-450) K/mm3 MPV (6-9.5) fl Gran % (36.0-66.0) % Eos # (Auto) (0-0.5) Absolute Lymphs (auto) (1.0-4.6) Absolute Monos (auto) (0.0-1.3) Lymphocytes % (24.0-44.0) % Monocytes % (0.0-12.0) % Eosinophils % (0.00-5.0) % Basophils % (0.0-0.4) % Absolute Granulocytes (1.4-6.9) Basophils # (0-0.4) Sodium (137-145) mmol/L Potassium (3.5-5.1) mmol/L Chloride (98-107) mmol/L Carbon Dioxide (22-30) mmol/L Anion Gap (5-15) MEQ/L BUN (9-20) mg/dL Creatinine (0.66-1.25) mg/dL Estimated GFR ML/MIN Glucose (74-106) mg/dL Lactic Acid (0.4-2.0) Calcium (8.4-10.2) mg/dL Total Bilirubin (0.2-1.3) mg/dL AST (17-59) U/L ALT (0-50) U/L Alkaline Phosphatase (38-126) U/L Troponin I < 0.012 < 0.012 (0.000-0.034) ng/mL Serum Total Protein (6.3-8.2) g/dL Albumin (3.5-5.0) g/dL Amylase (30-110) U/L Lipase (23-300) U/L Urine Color YELLOW (YELLOW) Urine Appearance CLEAR (CLEAR) Urine pH 8.0 (5-6) Ur Specific [place] 1.019 (1.005-1.025) Urine Protein NEGATIVE (Negative) Urine Ketones MODERATE (NEGATIVE) Urine Blood NEGATIVE (0-5) Ender/ul Urine Nitrite NEGATIVE (NEGATIVE) Urine Bilirubin NEGATIVE (NEGATIVE) Urine Urobilinogen 4 (0-1) mg/dL Ur Leukocyte Esterase NEGATIVE (NEGATIVE) Urine WBC (Auto) NONE (0-5) /HPF Urine RBC (Auto) NONE (0-2) /HPF U Epithel Cells (Auto) NONE (FEW) /HPF Urine Bacteria (Auto) NONE (NEGATIVE) /HPF Urine Mucus (Auto) SLIGHT (NEGATIVE) /HPF Urine Culture Reflexed NO (NO) Urine Glucose NEGATIVE (NEGATIVE) mg/dL 12/24/18 12/24/18 12/24/18 Range/Units 04:07 04:07 04:07 WBC 15.9 H (4.0-10.5) K/mm3 RBC 4.63 (4.1-5.6) M/mm3 Hgb 14.5 (12.5-18.0) gm/dl Hct 43.2 (42-50) % MCV 93.3 (78-100) fl MCH 31.3 (26-32) pg MCHC 33.6 (32-36) g/dl RDW 12.3 (11.5-14.0) % Plt Count 294 (150-450) K/mm3 MPV 10.7 H (6-9.5) fl Gran % 75.3 H (36.0-66.0) % Eos # (Auto) 0.06 (0-0.5) Absolute Lymphs (auto) 2.42 (1.0-4.6) Absolute Monos (auto) 1.41 H (0.0-1.3) Lymphocytes % 15.2 L (24.0-44.0) % Monocytes % 8.9 (0.0-12.0) % Eosinophils % 0.4 (0.00-5.0) % Basophils % 0.2 (0.0-0.4) % Absolute Granulocytes 11.96 H (1.4-6.9) Basophils # 0.03 (0-0.4) Sodium 137 (137-145) mmol/L Potassium 3.5 (3.5-5.1) mmol/L Chloride 102 (98-107) mmol/L Carbon Dioxide 24 (22-30) mmol/L Anion Gap 13.5 (5-15) MEQ/L BUN 6 L (9-20) mg/dL Creatinine 0.63 L (0.66-1.25) mg/dL Estimated GFR > 60.0 ML/MIN Glucose 89 (74-106) mg/dL Lactic Acid (0.4-2.0) Calcium 8.3 L (8.4-10.2) mg/dL Total Bilirubin (0.2-1.3) mg/dL AST (17-59) U/L ALT (0-50) U/L Alkaline Phosphatase (38-126) U/L Troponin I < 0.012 (0.000-0.034) ng/mL Serum Total Protein (6.3-8.2) g/dL Albumin (3.5-5.0) g/dL Amylase (30-110) U/L Lipase (23-300) U/L Urine Color (YELLOW) Urine Appearance (CLEAR) Urine pH (5-6) Ur Specific [place] (1.005-1.025) Urine Protein (Negative) Urine Ketones (NEGATIVE) Urine Blood (0-5) Ender/ul Urine Nitrite (NEGATIVE) Urine Bilirubin (NEGATIVE) Urine Urobilinogen (0-1) mg/dL Ur Leukocyte Esterase (NEGATIVE) Urine WBC (Auto) (0-5) /HPF Urine RBC (Auto) (0-2) /HPF U Epithel Cells (Auto) (FEW) /HPF Urine Bacteria (Auto) (NEGATIVE) /HPF Urine Mucus (Auto) (NEGATIVE) /HPF Urine Culture Reflexed (NO) Urine Glucose (NEGATIVE) mg/dL 12/24/18 Range/Units 06:55 WBC (4.0-10.5) K/mm3 RBC (4.1-5.6) M/mm3 Hgb (12.5-18.0) gm/dl Hct (42-50) % MCV (78-100) fl MCH (26-32) pg MCHC (32-36) g/dl RDW (11.5-14.0) % Plt Count (150-450) K/mm3 MPV (6-9.5) fl Gran % (36.0-66.0) % Eos # (Auto) (0-0.5) Absolute Lymphs (auto) (1.0-4.6) Absolute Monos (auto) (0.0-1.3) Lymphocytes % (24.0-44.0) % Monocytes % (0.0-12.0) % Eosinophils % (0.00-5.0) % Basophils % (0.0-0.4) % Absolute Granulocytes (1.4-6.9) Basophils # (0-0.4) Sodium (137-145) mmol/L Potassium (3.5-5.1) mmol/L Chloride (98-107) mmol/L Carbon Dioxide (22-30) mmol/L Anion Gap (5-15) MEQ/L BUN (9-20) mg/dL Creatinine (0.66-1.25) mg/dL Estimated GFR ML/MIN Glucose (74-106) mg/dL Lactic Acid (0.4-2.0) Calcium (8.4-10.2) mg/dL Total Bilirubin (0.2-1.3) mg/dL AST (17-59) U/L ALT (0-50) U/L Alkaline Phosphatase (38-126) U/L Troponin I < 0.012 (0.000-0.034) ng/mL Serum Total Protein (6.3-8.2) g/dL Albumin (3.5-5.0) g/dL Amylase (30-110) U/L Lipase (23-300) U/L Urine Color (YELLOW) Urine Appearance (CLEAR) Urine pH (5-6) Ur Specific [place] (1.005-1.025) Urine Protein (Negative) Urine Ketones (NEGATIVE) Urine Blood (0-5) Ender/ul Urine Nitrite (NEGATIVE) Urine Bilirubin (NEGATIVE) Urine Urobilinogen (0-1) mg/dL Ur Leukocyte Esterase (NEGATIVE) Urine WBC (Auto) (0-5) /HPF Urine RBC (Auto) (0-2) /HPF U Epithel Cells (Auto) (FEW) /HPF Urine Bacteria (Auto) (NEGATIVE) /HPF Urine Mucus (Auto) (NEGATIVE) /HPF Urine Culture Reflexed (NO) Urine Glucose (NEGATIVE) mg/dL - Radiology Impressions Radiology Exams & Impressions: Radiology Procedures Category Date Time Status HIDA-GALL BLADDER [NUCMED] Stat Exams 12/23/18 23:24 Ordered - Other Procedures and Tests Respiratory Therapy 12/23/18 23:24 EKG Assessment/Plan (1) Right upper quadrant abdominal pain Current Visit: Yes Status: Acute Assessment & Plan: HIDA scan and surgery consult are pending Code(s): R10.11 - RIGHT UPPER QUADRANT PAIN (2) Gastric diverticulum without complication Current Visit: Yes Status: Acute Code(s): K31.4 - GASTRIC DIVERTICULUM (3) Gallbladder polyp Current Visit: No Status: Acute Code(s): K82.4 - CHOLESTEROLOSIS OF GALLBLADDER (4) Nausea & vomiting Current Visit: No Status: Acute Assessment & Plan: npo currently, IV fluids pain meds/antiemetics at this time for symptom control Code(s): R11.2 - NAUSEA WITH VOMITING, UNSPECIFIED
--- NOTE | 2018-12-24 12:25 | XRAY ---
Indication: Right upper quadrant abdominal pain. Nausea and vomiting. Gallbladder polyps on recent sonogram. Comparison: None Patient received 5.4 mCi technetium 99 Choletec. Immediate anterior planar imaging was performed for 60 minutes. Normal hepatic and biliary activity on the first image. Normal biliary to bowel activity within 10 minutes. Normal gallbladder activity within 20 minutes. Patient then received 1.4 g of IV CCK slowly. Patient complained of mild right upper quadrant abdominal pain and nausea. Ejection fraction calculated 68%, normal. Impression: Normal HIDA scan. Normal ejection fraction 68%.
[2018-12-24] MEDS: MORPHINE SULFATE 4 MG INJ IV PRN ×2 (14:15→19:58)
[2018-12-24] MEDS: Sodium Chloride 0.9% 1000 ML 1,000 ML IV SCH ×2 (14:15→19:45)
[2018-12-24] MEDS: ENOXAPARIN SODIUM SQ SCH (17:01)
[2018-12-25] MEDS: MORPHINE SULFATE 4 MG INJ IV PRN ×4 (03:10→22:23)
[2018-12-25] MEDS: Sodium Chloride 0.9% 1000 ML 1,000 ML IV SCH ×3 (05:22→20:32)
[2018-12-25 06:43] LABS: Absolute Neutrophil Ct (ANC) 8.56 (1.4-6.9); BASOPHIL % 0.2 % (0.0-0.4); Basophil (Absolute #) 0.03 (0-0.4); Eosinophil % 1.2 % (0.00-5.0); Eosinophil (Absolute #) 0.15 (0-0.5); Hematocrit 43.1 % (42-50); Hemoglobin 14.7 gm/dl (12.5-18.0); Lymphocyte (Absolute #) 2.36 (1.0-4.6); Lymphocytes % 19.1 % (24.0-44.0); Mean Cell Volume 94.3 fl (78-100); Mean Corpuscular Hemoglobin 32.2 pg (26-32); Mean Corpuscular Hgb Concent. 34.1 g/dl (32-36); Monocyte (Absolute #) 1.26 (0.0-1.3); Monocytes % 10.2 % (0.0-12.0); Neutrophil % 69.3 % (36.0-66.0); Platelet Count 268 K/mm3 (150-450); Red Blood Count 4.57 M/mm3 (4.1-5.6); Red Cell Distribution Width 12.3 % (11.5-14.0); White Blood Count 12.4 K/mm3 (4.0-10.5)
[2018-12-25 07:00] LABS: ALBUMIN 3.6 g/dL (3.5-5.0); ALKALINE PHOSPHATASE 62 U/L (38-126); ANION GAP 15.6 MEQ/L (5-15); BLOOD UREA NITROGEN 8 mg/dL (9-20); CHLORIDE 103 mmol/L (98-107); Calcium 8.5 mg/dL (8.4-10.2); Carbon Dioxide 22 mmol/L (22-30); Creatinine 1 0.62 mg/dL (0.66-1.25); Glucose 64 mg/dL (74-106); Potassium 3.3 mmol/L (3.5-5.1); SGOT/AST 20 U/L (17-59); SGPT/ALT 15 U/L (0-50); SODIUM 137 mmol/L (137-145); Total Protein 6.3 g/dL (6.3-8.2)
[2018-12-25 07:35] LABS: AMYLASE 220 U/L (30-110); LIPASE 1127 U/L (23-300)
[2018-12-25] MEDS ORDERED: DIPRIVAN 200 MG/20 ML IV ONE (11:28)
[2018-12-25] MEDS ORDERED: Ketamine HCl 50 MG/ML ONE (11:29)
--- NOTE | 2018-12-25 11:29 | PCM.NOTE ---
Date and Time: 12/25/181123 Subjective Assessment: 53 yr old male seen and examined this am. Patient reports slight improvement with his pain. He still does not have much of an appetite and is afraid to eat because of the pain. Patient reports that he has pain following eating and not necessarily related to fatty foods. Patient report hx of hernia repair and colon surgery for diverticular disease. Denies family hx of crohns. Patient described the pain as sharp and comes and goes. He states its upper r and mid abdomen. No reported fevers. Patient denies increased use of NSAIDs - Review of Systems Constitutional: No Fever Eyes: No Vision Changes Ears, Nose, & Throat: Throat Swelling, No Nose Congestion, No Nose Discharge, No Mouth Pain Respiratory: No Cough, No Short Of Breath, No Wheezing Cardiac: No Chest Pain, No Edema Abdominal/Gastrointestinal: Abdominal Pain, Nausea, Vomiting (no episodes over night), No Diarrhea, No Constipation, No Hematochezia, No Melena Genitourinary Symptoms: No Dysuria, No Frequency, No Hematuria Musculoskeletal: No Symptoms Neurological: No Symptoms Psychological: No Alcohol Abuse, No Drug Abuse Hematologic/Lymphatic: No Anemia Objective Exam General Appearance: mild distress, other (Patient looks unwell.) Neurologic Exam: alert, oriented x 3, cooperative, normal mood/affect Skin Exam: normal color, warm, dry Eye Exam: eyes nml inspection, No scleral icterus Ears, Nose, Throat Exam: moist mucous membranes Neck Exam: normal inspection Respiratory Exam: normal breath sounds, lungs clear, No chest tenderness, No respiratory distress, No crackles/rales, No rhonchi, No wheezing Cardiovascular Exam: regular rate/rhythm, normal heart sounds, No murmur Gastrointestinal/Abdomen Exam: normal bowel sounds, tenderness, No distention, No mass Extremity Exam: normal inspection OBJECTIVE DATA Vital Signs: Vital Signs - 24 hr Temp Pulse Resp BP Pulse Ox 12/25/18 11:15 98.7 F 61 17 112/69 94 L 12/25/18 07:43 98.7 F 61 17 112/69 94 L 12/25/18 04:13 98.4 F 61 18 144/81 96 12/25/18 00:15 98.7 F 68 18 140/76 97 12/24/18 20:00 99.5 F 61 17 159/90 96 12/24/18 16:00 99.6 F 60 21 127/77 97 12/24/18 12:00 99.2 F 69 16 161/77 96 Pain Assessment - Last Documented Pain Intensity 1 Pain Scale Used [facility] Intake and Output: Intake & Output 12/22/18 12/23/18 12/24/18 12/25/18 11:59 11:59 11:59 11:59 Intake Total 461 2469 Output Total 1350 1600 Balance -889 869 Weight 73.4 kg 71.7 kg Lab Results: Lab Results-Last 24 Hours 12/25/18 12/25/18 12/25/18 Range/Units 06:15 06:15 06:15 WBC 12.4 H (4.0-10.5) K/mm3 RBC 4.57 (4.1-5.6) M/mm3 Hgb 14.7 (12.5-18.0) gm/dl Hct 43.1 (42-50) % MCV 94.3 (78-100) fl MCH 32.2 H (26-32) pg MCHC 34.1 (32-36) g/dl RDW 12.3 (11.5-14.0) % Plt Count 268 (150-450) K/mm3 MPV 10.0 H (6-9.5) fl Gran % 69.3 H (36.0-66.0) % Eos # (Auto) 0.15 (0-0.5) Absolute Lymphs (auto) 2.36 (1.0-4.6) Absolute Monos (auto) 1.26 (0.0-1.3) Lymphocytes % 19.1 L (24.0-44.0) % Monocytes % 10.2 (0.0-12.0) % Eosinophils % 1.2 (0.00-5.0) % Basophils % 0.2 (0.0-0.4) % Absolute Granulocytes 8.56 H (1.4-6.9) Basophils # 0.03 (0-0.4) Sodium 137 (137-145) mmol/L Potassium 3.3 L (3.5-5.1) mmol/L Chloride 103 (98-107) mmol/L Carbon Dioxide 22 (22-30) mmol/L Anion Gap 15.6 H (5-15) MEQ/L BUN 8 L (9-20) mg/dL Creatinine 0.62 L (0.66-1.25) mg/dL Estimated GFR > 60.0 ML/MIN Glucose 64 L (74-106) mg/dL Calcium 8.5 (8.4-10.2) mg/dL Total Bilirubin 0.60 (0.2-1.3) mg/dL AST 20 (17-59) U/L ALT 15 (0-50) U/L Alkaline Phosphatase 62 (38-126) U/L Serum Total Protein 6.3 (6.3-8.2) g/dL Albumin 3.6 (3.5-5.0) g/dL Amylase 220 H (30-110) U/L Lipase 1127 H (23-300) U/L Radiology Exams: Radiology Procedures Category Date Time Status HEPATOBILIARY W/CCK [NUCMED] Stat Exams 12/23/18 23:24 Completed Assessment/Plan (1) Pancreatitis Current Visit: Yes Status: Acute Assessment & Plan: Patient has upper epigastric pain. Lipase and amylase were normal in ER but significantly elevated today. Unsure if HIDA scan can cause falsely elevated amylase or lipase but will treat for an acute pancreatitis with increasing fluids and pain management. Patient is already NPO for a planned EGD. Will advance diet as tolerated and per surgeries rec post procedure. Code(s): K85.90 - ACUTE PANCREATITIS WITHOUT NECROSIS OR INFECTION, UNSP (2) Intractable upper abdominal pain Current Visit: Yes Status: Acute Assessment & Plan: Patient has RUQ with negative HIDA and negative imaging thus far. No clear eitiology. Patient is going for EGD this am. Patient denies any hx of crohns and UC. Patient denies any recent increase in NSAIDs. No significant alcohol hx reported. Will order hepatitis panel to evaluate for additional causes of abdominal pain. Patient is currently NPO and IV fluids in preparation for EGD Code(s): R10.10 - UPPER ABDOMINAL PAIN, UNSPECIFIED (3) Mild dehydration Current Visit: Yes Status: Acute Assessment & Plan: Patient was dehydrated on admission. He is receiving IV fluids. Will continue to monitor. Code(s): E86.0 - DEHYDRATION (4) Nausea & vomiting Current Visit: No Status: Acute Assessment & Plan: Patient will Zofran for nausea and vomiting. Will continue to monitor. Patient is getting EGD this am to look for underlying cause. Could be related to pancreatitis Code(s): R11.2 - NAUSEA WITH VOMITING, UNSPECIFIED
[2018-12-25] MEDS: ENOXAPARIN SODIUM SQ SCH (12:35)
[2018-12-25] MEDS: Zofran 4 MG/2 ML VIAL IV PRN ×3 (12:59→22:24)
[2018-12-25 13:07] LABS: Direct Bilirubin 0.4 mg/dL (0.0-0.4)
[2018-12-25] MEDS: Protonix 40MG Tablet PO SCH (14:02)
[2018-12-25] MEDS: Carafate SUSPENSION 1000 MG/10 ML PO SCH ×3 (14:02→22:24)
[2018-12-26] MEDS: Sodium Chloride 0.9% 1000 ML 1,000 ML IV SCH ×2 (01:35→06:27)
[2018-12-26] MEDS: Zofran 4 MG/2 ML VIAL IV PRN ×4 (03:01→18:23)
[2018-12-26] MEDS: MORPHINE SULFATE 4 MG INJ IV PRN ×5 (03:01→22:46)
--- NOTE | 2018-12-26 06:47 | PCM.NOTE ---
Date and Time: 12/26/18635 Subjective Assessment: 53 yr old male seen and examined this am. Patient reports that he is feeling much better this am. He reports that the medication is helping. He has been able to tolerated ice chips. He had one episode of vomiting following EGD but has not had anymore episodes. Patient still reports nausea. Patient reports abdominal tenderness RUQ epigastric and LUQ. No other reported symptoms. - Review of Systems Constitutional: No Fever Respiratory: No Short Of Breath Cardiac: No Chest Pain, No Edema Abdominal/Gastrointestinal: Abdominal Pain, Nausea, Vomiting, No Diarrhea, No Constipation Genitourinary Symptoms: No Symptoms Musculoskeletal: No Symptoms Skin: No Symptoms Neurological: No Headache Psychological: Other (Patient reports drinking six pack on the weekends) Objective Exam General Appearance: other (Patient appears improved from yesterday. Still looks mildly ill.) Neurologic Exam: alert, oriented x 3, cooperative, normal mood/affect Skin Exam: normal color, warm, dry Eye Exam: eyes nml inspection Ears, Nose, Throat Exam: moist mucous membranes Neck Exam: normal inspection Respiratory Exam: normal breath sounds Cardiovascular Exam: regular rate/rhythm, normal heart sounds, murmur Gastrointestinal/Abdomen Exam: soft, normal bowel sounds, tenderness (Patient has RUQ epigastric LUQ) Extremity Exam: normal inspection OBJECTIVE DATA Vital Signs: Vital Signs - 24 hr Temp Pulse Resp BP Pulse Ox 12/26/18 04:00 98.4 F 59 L 16 121/69 97 12/25/18 23:40 98.4 F 65 16 123/72 97 12/25/18 20:00 98.4 F 71 16 114/73 99 12/25/18 16:00 99.1 F 63 18 155/79 96 12/25/18 12:00 98.6 F 56 L 17 143/80 96 12/25/18 11:15 98.7 F 61 17 112/69 94 L 12/25/18 07:43 98.7 F 61 17 112/69 94 L Pain Assessment - Last Documented Pain Intensity 5 Pain Scale Used 0-10 Pain Scale Intake and Output: Intake & Output 12/23/18 12/24/18 12/25/18 12/26/18 11:59 11:59 11:59 11:59 Intake Total 461 3379 8445 Output Total 1350 1600 2250 Balance -048 932 1236 Weight 73.4 kg 71.7 kg Lab Results: Lab Results-Last 24 Hours 12/25/18 12/25/18 12/25/18 Range/Units 06:15 06:15 06:15 WBC 12.4 H (4.0-10.5) K/mm3 RBC 4.57 (4.1-5.6) M/mm3 Hgb 14.7 (12.5-18.0) gm/dl Hct 43.1 (42-50) % MCV 94.3 (78-100) fl MCH 32.2 H (26-32) pg MCHC 34.1 (32-36) g/dl RDW 12.3 (11.5-14.0) % Plt Count 268 (150-450) K/mm3 MPV 10.0 H (6-9.5) fl Gran % 69.3 H (36.0-66.0) % Eos # (Auto) 0.15 (0-0.5) Absolute Lymphs (auto) 2.36 (1.0-4.6) Absolute Monos (auto) 1.26 (0.0-1.3) Lymphocytes % 19.1 L (24.0-44.0) % Monocytes % 10.2 (0.0-12.0) % Eosinophils % 1.2 (0.00-5.0) % Basophils % 0.2 (0.0-0.4) % Absolute Granulocytes 8.56 H (1.4-6.9) Basophils # 0.03 (0-0.4) Sodium 137 (137-145) mmol/L Potassium 3.3 L (3.5-5.1) mmol/L Chloride 103 (98-107) mmol/L Carbon Dioxide 22 (22-30) mmol/L Anion Gap 15.6 H (5-15) MEQ/L BUN 8 L (9-20) mg/dL Creatinine 0.62 L (0.66-1.25) mg/dL Estimated GFR > 60.0 ML/MIN Glucose 64 L (74-106) mg/dL Calcium 8.5 (8.4-10.2) mg/dL Total Bilirubin 0.60 (0.2-1.3) mg/dL Direct Bilirubin 0.4 (0.0-0.4) mg/dL AST 20 (17-59) U/L ALT 15 (0-50) U/L Alkaline Phosphatase 62 (38-126) U/L Serum Total Protein 6.3 (6.3-8.2) g/dL Albumin 3.6 (3.5-5.0) g/dL Amylase 220 H (30-110) U/L Lipase 1127 H (23-300) U/L Assessment/Plan (1) Pancreatitis Current Visit: Yes Status: Acute Assessment & Plan: Symptoms have improved. Patient reports that his pain has decreased significantly. Patient has tolerated ice chips and has not had any more episodes of vomiting overnight. Will continue with pain meds IV fluids. Patient can advance to clear liquid diet as tolerated. If patient is unable to tolerate clear liquids, we will resume NPO for another day. Code(s): K85.90 - ACUTE PANCREATITIS WITHOUT NECROSIS OR INFECTION, UNSP (2) Intractable upper abdominal pain Current Visit: Yes Status: Acute Assessment & Plan: Patient had EGD that showed duodenal ulcers. Patient was started on carafate and is on protonix. Patient will likely go home on these meds as well. Patient is also being treated for Pancreatitis. Code(s): R10.10 - UPPER ABDOMINAL PAIN, UNSPECIFIED (3) Mild dehydration Current Visit: Yes Status: Acute Assessment & Plan: Patient has IV fluids running for dehydration Code(s): E86.0 - DEHYDRATION (4) Nausea & vomiting Current Visit: No Status: Acute Assessment & Plan: Will have zofran available for nausea and vomiting Code(s): R11.2 - NAUSEA WITH VOMITING, UNSPECIFIED
[2018-12-26 07:55] LABS: Absolute Neutrophil Ct (ANC) 7.07 (1.4-6.9); BASOPHIL % 0.2 % (0.0-0.4); Basophil (Absolute #) 0.02 (0-0.4); Eosinophil % 1.8 % (0.00-5.0); Eosinophil (Absolute #) 0.19 (0-0.5); Hematocrit 39.4 % (42-50); Hemoglobin 13.5 gm/dl (12.5-18.0); Lymphocyte (Absolute #) 2.48 (1.0-4.6); Mean Corpuscular Hemoglobin 32.2 pg (26-32); Mean Corpuscular Hgb Concent. 34.3 g/dl (32-36); Mean Platelet Volume 10.4 fl (6-9.5); Monocyte (Absolute #) 1.03 (0.0-1.3); Monocytes % 9.5 % (0.0-12.0); Neutrophil % 65.5 % (36.0-66.0); Platelet Count 271 K/mm3 (150-450); Red Blood Count 4.19 M/mm3 (4.1-5.6); Red Cell Distribution Width 12.1 % (11.5-14.0); White Blood Count 10.8 K/mm3 (4.0-10.5)
[2018-12-26 08:03] LABS: ANION GAP 14.6 MEQ/L (5-15); BLOOD UREA NITROGEN 5 mg/dL (9-20); CHLORIDE 108 mmol/L (98-107); Calcium 8.2 mg/dL (8.4-10.2); Carbon Dioxide 19 mmol/L (22-30); Creatinine 1 0.61 mg/dL (0.66-1.25); Glucose 60 mg/dL (74-106); Potassium 3.3 mmol/L (3.5-5.1); SODIUM 138 mmol/L (137-145)
[2018-12-26] MEDS: Protonix 40MG Tablet PO SCH (08:03)
[2018-12-26] MEDS: Carafate SUSPENSION 1000 MG/10 ML PO SCH ×4 (08:07→21:01)
[2018-12-26] MEDS ORDERED: POTASSIUM CHLORIDE 20 mEq IN WATER 100ML 20 MEQ/100 ML BAG IV ONE (09:14)
[2018-12-26] MEDS: ENOXAPARIN SODIUM SQ SCH (12:24)
[2018-12-26] MEDS: POTASSIUM CHLORIDE 20 mEq IN WATER 100ML 20 MEQ/100 ML BAG IV SCH (22:21)
[2018-12-27] MEDS: POTASSIUM CHLORIDE 20 mEq IN WATER 100ML 20 MEQ/100 ML BAG IV SCH (01:43)
[2018-12-27] MEDS: MORPHINE SULFATE 4 MG INJ IV PRN ×5 (03:58→21:22)
[2018-12-27] MEDS: Sodium Chloride 0.9% 1000 ML 1,000 ML IV SCH ×4 (04:48→21:21)
[2018-12-27] MEDS: Carafate SUSPENSION 1000 MG/10 ML PO SCH ×4 (08:20→21:22)
[2018-12-27] MEDS: ENOXAPARIN SODIUM SQ SCH (08:21)
[2018-12-27] MEDS: Protonix 40MG Tablet PO SCH (08:21)
--- NOTE | 2018-12-27 08:23 | PCM.NOTE ---
Date and Time: 12/27/18820 Subjective Assessment: patient is doing well today, his nausea and vomiting are much improved. he is tolerating liquids and pudding. Objective Exam General Appearance: no apparent distress, alert Skin Exam: normal color, warm, dry Respiratory Exam: normal breath sounds, lungs clear, No respiratory distress Cardiovascular Exam: regular rate/rhythm, normal heart sounds Gastrointestinal/Abdomen Exam: soft, No tenderness, No mass OBJECTIVE DATA Vital Signs: Vital Signs - 24 hr Temp Pulse Resp BP Pulse Ox 12/27/18 08:00 98.2 F 60 17 132/73 99 12/27/18 04:00 98.1 F 59 L 16 125/72 98 12/27/18 00:00 99.0 F 61 16 131/67 99 12/26/18 20:00 98.7 F 60 17 141/69 98 12/26/18 16:00 98.9 F 59 L 16 122/75 97 12/26/18 12:00 98.5 F 59 L 17 128/72 96 Pain Assessment - Last Documented Pain Intensity 1 Pain Scale Used 0-10 Pain Scale Intake and Output: Intake & Output 12/24/18 12/25/18 12/26/18 12/27/18 11:59 11:59 11:59 11:59 Intake Total 461 2469 4605 5073 Output Total 1350 1600 2800 2900 Balance -548 685 8729 2173 Weight 73.4 kg 71.7 kg 72 kg 72.8 kg Lab Results: Lab Results-Last 24 Hours 12/25/18 12/26/18 12/27/18 Range/Units 11:53 21:00 06:13 Potassium 3.1 L 3.9 D (3.5-5.1) mmol/L H. pylori Urease Test NEGATIVE (Negative) Assessment/Plan (1) Duodenal ulcer Current Visit: Yes Status: Acute Assessment & Plan: continue protonix and carafate at this time (2) Right upper quadrant abdominal pain Current Visit: Yes Status: Acute Code(s): R10.11 - RIGHT UPPER QUADRANT PAIN (3) Nausea & vomiting Current Visit: No Status: Acute Code(s): R11.2 - NAUSEA WITH VOMITING, UNSPECIFIED
--- NOTE | 2018-12-27 09:46 | OP ---
SURGERY DATE/TIME: 12/25/2018 1150 PREOPERATIVE DIAGNOSIS: Right upper quadrant pain. POSTOPERATIVE DIAGNOSIS: Extensive superficial ulcerations of the duodenum. PROCEDURE: EGD with biopsy for CLOtest. SURGEON: Jono Sandoval M.D. ANESTHESIA: MAC by Vinod Jara CRNA. COMPLICATIONS: None. CONDITION: Stable. INDICATION: A patient requiring evaluation. DESCRIPTION OF PROCEDURE: Taken to the endoscopy suite. MAC sedation provided. Excellent anesthesia level present. Scope introduced. Pharynoesophageal junction normal. Esophagus normal. A little light scarring at the gastroesophageal junction. No hiatal hernia. No gastroesophageal reflux disease today. Fundus, body, antrum normal. Pylorus normal. Duodenal bulb there were at least 8 superficial duodenal ulcers. None of these had any depth and it certainly is not causing his increased elevated amylase but it certainly is causing pain and suffering. A cash application representative cold biopsy was obtained for CLOtest. Scope withdrawn. The patient tolerated the procedure satisfactorily. Findings discussed with the family in the waiting room. He does need treatment for his duodenal ulcer disease. He will need medical treatment of his pancreatitis.
[2018-12-28] MEDS: Sodium Chloride 0.9% 1000 ML 1,000 ML IV SCH (02:09)
[2018-12-28] MEDS: MORPHINE SULFATE 4 MG INJ IV PRN (02:18)
[2018-12-28 05:29] LABS: Absolute Neutrophil Ct (ANC) 5.22 (1.4-6.9); BASOPHIL % 0.5 % (0.0-0.4); Basophil (Absolute #) 0.04 (0-0.4); Eosinophil % 2.6 % (0.00-5.0); Eosinophil (Absolute #) 0.22 (0-0.5); Hematocrit 37.7 % (42-50); Hemoglobin 12.8 gm/dl (12.5-18.0); Lymphocyte (Absolute #) 2.23 (1.0-4.6); Lymphocytes % 25.9 % (24.0-44.0); Mean Cell Volume 94.7 fl (78-100); Mean Platelet Volume 9.9 fl (6-9.5); Monocyte (Absolute #) 0.89 (0.0-1.3); Monocytes % 10.3 % (0.0-12.0); Neutrophil % 60.7 % (36.0-66.0); Platelet Count 256 K/mm3 (150-450); Red Blood Count 3.98 M/mm3 (4.1-5.6); Red Cell Distribution Width 12.1 % (11.5-14.0); White Blood Count 8.6 K/mm3 (4.0-10.5)
[2018-12-28 05:34] LABS: Mean Corpuscular Hemoglobin 32.1 pg (26-32)
[2018-12-28 05:56] LABS: ALBUMIN 3.1 g/dL (3.5-5.0); ALKALINE PHOSPHATASE 47 U/L (38-126); AMYLASE 66 U/L (30-110); ANION GAP 9.4 MEQ/L (5-15); CHLORIDE 103 mmol/L (98-107); Calcium 8.6 mg/dL (8.4-10.2); Carbon Dioxide 31 mmol/L (22-30); Creatinine 1 0.54 mg/dL (0.66-1.25); Glucose 95 mg/dL (74-106); LIPASE 71 U/L (23-300); Potassium 3.2 mmol/L (3.5-5.1); SGOT/AST 17 U/L (17-59); SGPT/ALT 12 U/L (0-50); SODIUM 141 mmol/L (137-145); Total Protein 5.7 g/dL (6.3-8.2)
[2018-12-28 05:58] LABS: BLOOD UREA NITROGEN 2 mg/dL (9-20)
[2018-12-28] MEDS: Carafate SUSPENSION 1000 MG/10 ML PO SCH (07:20)
[2018-12-28 07:28] VITALS: BP 125/80; PULSE 65; O2SAT 95
--- NOTE | 2018-12-28 08:59 | PCM.DS ---
Discharge Summary Date of Admission: 12/23/18 23:18 Admitting Physician: SHANTEL MCKINNEY Consults: Consults on Case 12/24/18 08:00 Consult Surgery ROUTINE 12/24/18 08:13 Consult Surgery ROUTINE Primary Care Provider: SHANTEL MCKINNEY Allergies Allergies No Known Drug Allergies Allergy (Verified 12/22/18 07:47) Hospital Summary - Hospital Course Hospital Course: Pt is 53 yo male pt of Dr. Mckinney with hx diverticulitis and tubular adenoma who was admitted to [facility] with RUQ pain and WBC count of 15.9. He was found on EGD to have duodenal ulcers and was started on po carafate and protonix. Hgb has been stable throughout. He had a HIDA scan that was negative. He also had some amylase and lipase elevation so was treated for pancreatitis as well. He has been tolerating po the past couple of days and would like to go home today ( this morning ate eggs and toast with no nausea). - Vitals & Intake/Output Vital Signs: Vital Signs Temperature 98.6 F 12/28/18 07:27 Pulse Rate 65 12/28/18 07:27 Respiratory Rate 18 12/28/18 07:27 Blood Pressure 125/80 12/28/18 07:27 O2 Sat by Pulse Oximetry 95 12/28/18 07:27 Intake & Output: Intake & Output 12/25/18 12/26/18 12/27/18 12/28/18 11:59 11:59 11:59 11:59 Intake Total 2469 4605 5313 5707 Output Total 1600 2800 3700 2450 Balance 869 1805 1613 3257 Weight 71.7 kg 72 kg 72.8 kg - Lab Result Diagrams: 12/28/18 05:00 12/28/18 05:00 Lab Results-Last 24 Hrs: Lab Results-Last 24 Hours 12/28/18 12/28/18 Range/Units 05:00 05:00 WBC 8.6 (4.0-10.5) K/mm3 RBC 3.98 L (4.1-5.6) M/mm3 Hgb 12.8 (12.5-18.0) gm/dl Hct 37.7 L (42-50) % MCV 94.7 (78-100) fl MCH 32.1 H (26-32) pg MCHC 34.0 (32-36) g/dl RDW 12.1 (11.5-14.0) % Plt Count 256 (150-450) K/mm3 MPV 9.9 H (6-9.5) fl Gran % 60.7 (36.0-66.0) % Eos # (Auto) 0.22 (0-0.5) Absolute Lymphs (auto) 2.23 (1.0-4.6) Absolute Monos (auto) 0.89 (0.0-1.3) Lymphocytes % 25.9 (24.0-44.0) % Monocytes % 10.3 (0.0-12.0) % Eosinophils % 2.6 (0.00-5.0) % Basophils % 0.5 (0.0-0.4) % Absolute Granulocytes 5.22 (1.4-6.9) Basophils # 0.04 (0-0.4) Sodium 141 (137-145) mmol/L Potassium 3.2 L (3.5-5.1) mmol/L Chloride 103 (98-107) mmol/L Carbon Dioxide 31 H (22-30) mmol/L Anion Gap 9.4 (5-15) MEQ/L BUN 2 L (9-20) mg/dL Creatinine 0.54 L (0.66-1.25) mg/dL Estimated GFR > 60.0 ML/MIN Glucose 95 (74-106) mg/dL Calcium 8.6 (8.4-10.2) mg/dL Total Bilirubin 0.30 (0.2-1.3) mg/dL AST 17 (17-59) U/L ALT 12 (0-50) U/L Alkaline Phosphatase 47 (38-126) U/L Serum Total Protein 5.7 L (6.3-8.2) g/dL Albumin 3.1 L (3.5-5.0) g/dL Amylase 66 (30-110) U/L Lipase 71 (23-300) U/L - Procedures and Test Procedures and Tests throughout Hospitalization: Therapy Orders & Screens 12/23/18 23:24 EKG Comment: 12/24/18 01:04 Smoking Cessation Education ONCE Comment: Diagnosis: Intractable Abdominal Pain, Intractable Nausea and Vomiting, Smoking Status: Light tobacco smoker How long have you smoked: 6 yrs Have you smoked in the past 12 months: Yes Approximately how many cigarettes per day: 0 Do you dip or chew tobacco: No If,Former Smoker,when did you quit: 2011 cigs Discharge Exam General Appearance: no apparent distress, alert Neurologic Exam: oriented x 3, cooperative Eye Exam: eyes nml inspection Ears, Nose, Throat Exam: moist mucous membranes Neck Exam: normal inspection Respiratory Exam: normal breath sounds, lungs clear, No crackles/rales, No rhonchi, No wheezing Cardiovascular Exam: regular rate/rhythm, normal heart sounds, No murmur Gastrointestinal/Abdomen Exam: soft, tenderness (mild in RUQ), No normal bowel sounds (hyperactive), No distention, No mass, No guarding, No rebound Extremity Exam: No pedal edema, No swelling Skin Exam: normal color, warm, dry, No rash Final Diagnosis/Problem List - Final Discharge Diagnosis/Problem (1) Duodenal ulcer Current Visit: Yes Status: Acute Assessment & Plan: Home on carafate and protonix; f/u with Dr. Mckinney in 1 week. (2) Pancreatitis Current Visit: Yes Status: Resolved Code(s): K85.90 - ACUTE PANCREATITIS WITHOUT NECROSIS OR INFECTION, UNSP (3) Right upper quadrant abdominal pain Current Visit: Yes Status: Acute Assessment & Plan: much improved. Code(s): R10.11 - RIGHT UPPER QUADRANT PAIN - Discharge Disposition: Home, Self-Care Condition: Good Prescriptions: New Sucralfate 1000 mg/10 ml [Carafate SUSPENSION 1000 MG/10 ML] 1,000 mg PO ACHS #500 ml PANTOPRAZOLE 40 mg Tablet [Protonix 40MG Tablet] 40 mg PO DAILY #30 tab Continue Trazodone HCl [Desyrel] 100 mg PO DAILY Ondansetron ODT 4 MG [Zofran Odt 4 mg] 4 mg PO Q8H PRN PRN #10 tab.rapdis PRN Reason: Nausea Hydrocodone/Acetaminophen [Hydrocodone-Acetamin 5-325 mg] 5 - 325 mg PO Q6HPRN PRN PRN Reason: Pain Follow up with: SHANTEL MCKINNEY MD [Primary Care Provider] - 01/05/19 11:15 am ERMA IVAN [ACTIVE STAFF] - 1 Week
[2018-12-28] MEDS: ENOXAPARIN SODIUM SQ SCH (09:27)
[2018-12-28] MEDS: Protonix 40MG Tablet PO SCH (09:27)
== END 2018-12-28 09:50 | disposition home or self-care (01) ==
LOC: ED 20:55 → MED SURG 23:18
PROVIDERS: ADMIT Family Medicine; ATTEND Family Medicine
DX: K31.4 Gastric diverticulum (principal); R10.10 Upper abdominal pain, unspecified; R11.2 Nausea with vomiting, unspecified; R03.0 Elevated blood-pressure reading, without diagnosis of hypertension; E86.0 Dehydration; Z79.899 Other long term (current) drug therapy
CPT/HCPCS: 36000; 36415; 78227; 80048; 80053; 81001; 82150; 82248; 83605; 83690; 84132; 84484; 85025; 87081; 93005; 93268; 94760; 96374; 96375; 99284; A9537; G0378; J1200; J1650; J1885; J2270; J2405; J2704; J3010; J3480; A9270-GY

== ENCOUNTER 2020-10-10 06:04 | Day surgery (SDC) | payer OTHER ==
[2020-10-10] MEDS ORDERED: Lactated Ringers 1,000 ML IV SCH (06:30)
[2020-10-10] MEDS ORDERED: DIPRIVAN 200 MG/20 ML IV ONE ×2 (07:45→08:04)
[2020-10-10 08:56] VITALS: BP 144/60; PULSE 57; O2SAT 100
--- NOTE | 2020-10-10 13:24 | OP ---
SURGERY DATE/TIME: 10/10/2020 0750 PREOPERATIVE DIAGNOSES: 1) History of colon polyps. 2) History of colon resection for diverticulosis. POSTOPERATIVE DIAGNOSES: 1) Small sessile transverse colon polyp. 2) Diverticulosis. PROCEDURE: Colonoscopy. SURGEON: Jese aBrahona M.D. ANESTHESIA: MAC by Yeison Gregg CRNA. ESTIMATED BLOOD LOSS: Minimal. SPECIMENS: Cold forceps polypectomy from transverse colon polyp. DESCRIPTION OF PROCEDURE: After informed written consent was obtained, the patient was taken to the endoscopy suite. He underwent monitored anesthesia and digital rectal exam showed normal sphincter tone and no internal lesions. The scope was inserted into the rectum and sequentially the entire colonic mucosa was traversed. The level of cecum was reached and verified with direct visualization of the ileocecal valve. Upon withdrawal careful mucosal inspection revealed no gross abnormalities until I reached the distal transverse colon. There was a small polypoid slightly raised but very minimal lesion which was grasped with cold forceps and removed and sent for pathology testing. Blood loss was minimal. Upon further withdrawal there were some sigmoid colon diverticulosis with evidence of a prior anastomosis which appeared healthy and viable with no abnormalities. Prior to withdrawal retroflexion was performed and showed no internal lesions. The scope was removed and the patient was transferred to the recovery room in good condition. He will follow up in a week for pathology.
== END 2020-10-10 09:06 | disposition home or self-care (01) ==
LOC: SDC 06:04
PROVIDERS: ATTEND Family Medicine
DX: Z12.11 Encounter for screening for malignant neoplasm of colon (principal); Z09 Encounter for follow-up examination after completed treatment for conditions other than malignant neoplasm; Z86.010 Personal history of colon polyps; Z90.49 Acquired absence of other specified parts of digestive tract; K57.30 Diverticulosis of large intestine without perforation or abscess without bleeding; K63.5 Polyp of colon
CPT/HCPCS: 88305; J2704

== ENCOUNTER 2023-11-18 12:45 | Day surgery (SDC) | payer BC ==
[2023-11-18] MEDS ORDERED: Decadron 4 MG INJ IV ONE (12:46)
[2023-11-18] MEDS ORDERED: Sodium Chloride 0.9(Preservative Free) 10 ML IJ ONE (12:46)
[2023-11-18] MEDS ORDERED: Lactated Ringers 1,000 ML IV ONE (14:12)
[2023-11-18] MEDS ORDERED: DIPRIVAN 200 MG/20 ML IV ONE ×2 (14:51→15:02)
--- NOTE | 2023-11-18 20:06 | XRAY ---
Indication: Left L4-S1 transforaminal SALLY Intraoperative fluoroscopy provided for 23 seconds. 4 digital spot image submitted for interpretation demonstrates posterior needle tips projecting over the expected left L4 and L5 nerve roots. Small amount of contrast injected for needle tip placement. Correlate with intraoperative findings/report.
--- NOTE | 2023-11-18 20:23 | XRAY ---
23 seconds of fluoroscopy was used in surgery for a left L4-S1 transforaminal SALLY.
== END 2023-11-18 15:17 | disposition home or self-care (01) ==
LOC: SDC-PAIN 12:45
PROVIDERS: ATTEND Psychiatry & Neurology Pain Medicine
DX: M54.16 Radiculopathy, lumbar region (principal)
CPT/HCPCS: 64483; 64484; 72100; 77003; J1100; J2704; Q9966

== ENCOUNTER 2024-01-14 13:38 | Day surgery (SDC) | payer BC ==
[2024-01-14] MEDS ORDERED: Depo-Medrol 40 MG/ML IM ONE (13:39)
[2024-01-14] MEDS ORDERED: BUPIVACAINE 0.5% VIAL IJ ONE (13:39)
[2024-01-14] MEDS ORDERED: DIPRIVAN 200 MG/20 ML IV ONE (15:18)
--- NOTE | 2024-01-14 21:49 | XRAY ---
Indication: Left SI joint injection. Intraoperative fluoroscopy provided for 9 seconds. Single digital spot images submitted for interpretation demonstrates posterior needle tip projecting over left SI joint. Small amount of contrast injected for needle tip placement. Correlate with intraoperative findings/report.
--- NOTE | 2024-01-14 21:59 | XRAY ---
9 seconds of fluoroscopy was used in surgery for a left sacroiliac joint injection.
== END 2024-01-14 15:40 | disposition home or self-care (01) ==
LOC: SDC-PAIN 13:38
PROVIDERS: ATTEND Psychiatry & Neurology Pain Medicine
DX: M46.1 Sacroiliitis, not elsewhere classified (principal)
CPT/HCPCS: 27096; 72170; 77002; J2704; Q9966

== ENCOUNTER 2024-04-20 13:19 | Day surgery (SDC) | payer BC ==
[2024-04-20] MEDS ORDERED: methylPREDNISolone acetate IM ONE (13:20)
[2024-04-20] MEDS ORDERED: Sodium Chloride 0.9(Preservative Free) 10 ML IJ ONE (13:20)
[2024-04-20] MEDS ORDERED: propofoL IV ONE (15:04)
--- NOTE | 2024-04-20 16:34 | XRAY ---
Indication: Caudal SALLY. Intraoperative fluoroscopy provided for 13 seconds. 2 digital spot image submitted for interpretation demonstrates caudal needle tip projecting mid sacrum. Small amount of contrast injected for needle tip placement. Correlate with intraoperative findings/report.
--- NOTE | 2024-04-20 16:56 | XRAY ---
13 seconds of fluoroscopy was used in surgery for a caudal SALLY.
== END 2024-04-20 15:35 ==
LOC: SDC-PAIN 13:19
PROVIDERS: ATTEND Psychiatry & Neurology Pain Medicine
DX: M54.16 Radiculopathy, lumbar region (principal)
CPT/HCPCS: 62323; 72220; 77003; J1010; J2704; Q9966